=== PATIENT | male | born 1945 | race Caucasian/White ===

== ENCOUNTER → 2018-08-02 07:44 | Outpatient (CLI) | payer MEDICARE, OTHER, SELFPAY ==
[2018-08-02 08:17] LABS: Alanine Aminotransferase 47 IU/L (21-72); Albumin 4.3 g/dL (3.5-5.0); Albumin Globulin Ratio 1.5 (1.0-2.8); Alkaline Phosphatase 98 U/L (38-126); Aspartate Aminotransferase 92 IU/L (17-59); BUN Creatinine Ratio 11.4 (6-22); Bilirubin Total 0.4 mg/dL (0.2-1.3); Blood Urea Nitrogen 8 mg/dL (9-20); Calcium 9.2 mg/dL (8.4-10.2); Carbon Dioxide 31 mmol/L (22-32); Chloride 101 mmol/L (98-107); Cholesterol 130 mg/dL (140-199); Estimated Glomerular Filt Rate > 60.0 mL/min (>60); Globulin 2.8 g/dL (1.7-4.1); Glucose 109 mg/dL (80-110); HDL Cholesterol 89 mg/dL (40-60); HEMOLYSIS < 15 (0-50); LDL Cholesterol Calculated 31 mg/dL (<100); Potassium 4.4 mmol/L (3.4-5.1); Sodium 140 mmol/L (137-145); Total Protein 7.1 g/dL (6.3-8.2); Triglycerides 48 mg/dL (35-150)
== END ==
PROVIDERS: Family Provider Internal Medicine; PCP Family Medicine; Visit Provider Family Medicine
DX: E78.5 Hyperlipidemia, unspecified (principal); I10 Essential (primary) hypertension
CPT/HCPCS: 36415; 80053; 80061

== ENCOUNTER → 2018-08-26 12:53 | Outpatient (CLI) | payer MEDICARE, OTHER, SELFPAY | PROVIDERS: Family Provider Internal Medicine; PCP Family Medicine; Visit Provider Family Medicine | DX: M81.0 Age-related osteoporosis without current pathological fracture (principal); Z82.62 Family history of osteoporosis | CPT/HCPCS: 77080 ==

== ENCOUNTER 2019-03-01 07:00 | Emergency (ER) | payer MEDICARE, OTHER, SELFPAY ==
--- NOTE | 2019-03-01 07:09 | DI.RAD.S_ITS ---
PROCEDURE: XR CHEST 1V INDICATIONS: pleuritic chest pain TECHNIQUE: One view of the chest was acquired. COMPARISON: None. FINDINGS: Surgical changes and devices: None. Lungs and pleura: Low lung volumes with scattered subsegmental atelectasis/scarring. No pleural effusions or pneumothorax. Mediastinum: Mediastinal contours appear normal. Heart size is normal. Bones and chest wall: No suspicious bony lesions. Overlying soft tissues appear unremarkable. IMPRESSION: Low lung volumes and scattered atelectasis. No acute disease. Dictated by: Daniel Champagne M.D. on 03/01/2019 at 7:39 Approved by: Daniel Champagne M.D. on 03/01/2019 at 7:40
[2019-03-01 07:13] VITALS: BP 136/86; PULSE 88; RESP 19; O2SAT 96
[2019-03-01 07:21] LABS: Add Manual Diff / Slide Review NO; Basophils Absolute Auto 100 /uL (0-100); Basophils Percent Auto 0.6 % (0-2); Eosinophils Absolute Auto 0 /uL (0-450); Eosinophils Percent Auto 0.2 % (2-4); Hematocrit 43.6 % (41-53); Hemoglobin 15.3 g/dL (13.5-17.5); Lymphocytes Absolute Auto 1200 /uL (1100-4500); Lymphocytes Percent Auto 11.5 % (25-40); Mean Corpuscular HGB Conc 35.2 % (30-36); Mean Corpuscular Hemoglobin 32.8 PG (26-34); Mean Corpuscular Volume 93.2 fL (80-100); Monocytes Absolute Auto 900 /uL (0-900); Monocytes Percent Auto 8.7 % (3-14); Neutrophils Absolute Auto 8600 /uL (1500-7000); Platelet Count 210 X10^3/uL (150-400); Red Blood Cell Count 4.68 X10^6/uL (4.5-5.9); Red Cell Distribution Width 13.2 % (11.6-14.8); White Blood Cell Count 10.8 X10^3/uL (4.5-11.0)
[2019-03-01 07:31] LABS: Alanine Aminotransferase 41 IU/L (21-72); Albumin 4.6 g/dL (3.5-5.0); Albumin Globulin Ratio 1.6 (1.0-2.8); Alkaline Phosphatase 84 U/L (38-126); Aspartate Aminotransferase 93 IU/L (17-59); Bilirubin Total 0.9 mg/dL (0.2-1.3); Blood Urea Nitrogen 9 mg/dL (9-20); Calcium 9.5 mg/dL (8.4-10.2); Carbon Dioxide 28 mmol/L (22-32); Chloride 101 mmol/L (98-107); Creatine Kinase 100 U/L (55-170); Estimated Glomerular Filt Rate > 60.0 mL/min (>60); Globulin 2.9 g/dL (1.7-4.1); Glucose 146 mg/dL (80-110); HEMOLYSIS 17 (0-50); Lipase 135 U/L (23-300); Potassium 3.7 mmol/L (3.4-5.1); Sodium 141 mmol/L (137-145); Total Protein 7.5 g/dL (6.3-8.2)
[2019-03-01] MEDS: SODIUM CHLORIDE 0.9% 1,000 ML 150 ML IV (07:32)
--- NOTE | 2019-03-01 07:39 | ED.CHESTPAIN ---
HPI - Chest Pain General Chief Complaint: Chest Pain Stated Complaint: chest difficulty breathing Time Seen by Provider: 03/01/19 07:02 Source: patient and family Mode of arrival: ambulatory Limitations: no limitations History of Present Illness HPI narrative: 74-year-old male nonsmoker with history of hypertension and hyperlipidemia presents with his significant other at the bedside with sharp and stabbing anterior chest pain since 12/19 this morning. He states it is worse with motion and with a deep breath. He denies any cough but has had some sinus congestion and was exposed to significant allergens [facility]. He denies any cardiac history. He denies any associated symptoms such as dizziness, weakness, lightheadedness, radiation of pain, provocation with exertion, nausea or vomiting. He denies recent travel, history of cancer Related Data Home Medications Medication Instructions Recorded Confirmed ASPIRIN (Aspir-Low) 81 mg PO QDAY #0 03/01/11 [VITAMIN D] QDAY #0 03/01/11 Previous Rx's Medication Instructions Recorded amlodipine 2.5 mg tablet 2.5 mg PO DAILY #90 tab 09/30/18 atorvastatin 40 mg tablet 40 mg PO DAILY #90 tab 09/30/18 Allergies Allergy/AdvReac Type Severity Reaction Status Date / Time Penicillins [PENICILLINS] Allergy Unknown A CHILD Verified 03/01/19 07:24 Review of Systems Constitutional Denies chills, Denies fever(s), Denies lethargy and Denies weakness Eyes Denies change in vision, Denies eye discharge, Denies irritation and Denies loss of vision ENT Ears, Nose, Mouth, and Throat: Denies change in voice, Denies neck pain and Denies sore throat Cardiovascular Reports chest pain, Denies irregular heart rhythm, Denies lightheadedness, Denies palpitations, Denies dyspnea, Denies dyspnea on exertion and Denies orthopnea Respiratory Denies cough, Reports pain on inspiration, Reports pain with cough, Denies dyspnea, Denies dyspnea on exertion and Denies wheezing Gastrointestinal Gastrointestinal: Denies abdominal pain, Denies change in bowel habits, Denies diarrhea, Denies nausea and Denies vomiting Genitourinary Denies hematuria, Denies flank pain, Denies urinary incontinence and Denies urinary urgency Musculoskeletal Denies neck pain Integumentary/Breasts Denies pruritus, Denies erythema, Denies rash and Denies wounds Neurologic Denies confusion, Denies loss of vision and Denies weakness Psychiatric Denies anxiety, Denies confusion, Denies depression, Denies homicidal ideation and Denies suicidal ideation Endocrine Denies palpitations Hematologic/Lymphatic Denies easy bruising Allergic/Immunologic Denies wheezing [facility] Medical History Actinic keratosis (Chronic ~1998) H pylori ulcer (Chronic ~2013) Osteopenia (Chronic ~2013) Cataracts, bilateral (Resolved ~2015) Chicken pox (Resolved) Measles (Resolved) Retinal detachment (Resolved ~2015) Surgical History Anesthesia (Resolved) Detached retina, right (Resolved ~2015) Detached retina, right (Resolved ~2015) History of bilateral knee replacement (Resolved ~2016) History of eye surgery (Resolved ~2014) Skin cancer (Resolved ~1998) Family History Father No problems noted. Mother Heart disease Brother Parkinson's disease Grandmother No problems noted. Grandfather No problems noted. Grandmother No problems noted. Social History marital status: household members: spouse lives independently: Yes education level: master's degree occupational status: other (retired) leisure activities: exercise and other (sailing) other: hiking Smoking Status: Never smoker alcohol intake: current (1-2 drinks daily) substance use type: does not use Family History Father No problems noted. Mother Heart disease Brother Parkinson's disease Grandmother No problems noted. Grandfather No problems noted. Grandmother No problems noted. Social History marital status: household members: spouse lives independently: Yes education level: master's degree occupational status: other (retired) leisure activities: exercise and other (sailing) other: hiking Smoking Status: Never smoker alcohol intake: current (1-2 drinks daily) substance use type: does not use Exam Narrative Exam Narrative: GENERAL: 74-year-old male, well-appearing, appears stated age and in mild distress, perhaps a bit anxious HEAD: Atraumatic. Normocephalic. No temporal or scalp tenderness. EYES: Pupils equal round and reactive. Extraocular motions intact. No scleral icterus. No injection or drainage. ENT: Nose without bleeding, purulent drainage or septal hematoma. Throat without erythema, tonsillar hypertrophy or exudate. Uvula midline. Airway patent. NECK: Trachea midline. No JVD or lymphadenopathy. Supple, nontender, no meningeal signs. CARDIOVASCULAR: Regular rate and rhythm without murmurs, gallops, or rubs. RESPIRATORY: Clear to auscultation. Breath sounds equal bilaterally. No wheezes, rales, or rhonchi. GASTROINTESTINAL: Abdomen soft, non-tender, nondistended. No hepato-splenomegaly, or palpable masses. No guarding. EXTREMITIES: No clubbing, cyanosis, or edema. No joint tenderness, effusion, or edema noted. BACK: Nontender without deformity or crepitance. No flank tenderness. NEURO: AOx3. SKIN: No rash or erythema. Initial Vital Signs Initial Vital Signs: Vital Signs Pulse Rate 88 03/01/19 07:13 Respiratory Rate 19 03/01/19 07:13 Blood Pressure 136/86 03/01/19 07:13 Pulse Oximetry 96 03/01/19 07:13 Course Orders Ordered: Discontinued Medications Aspirin (Aspirin Chew) 324 mg PO NOW ONE Stop: 03/01/19 07:10 Last Admin: 03/01/19 07:32 Dose: Not Given Sodium Chloride (Normal Saline 0.9%) 1,000 mls @ 150 mls/hr IV CONT LORETTA Last Infusion: 03/01/19 11:38 Dose: 0 mls/hr Admin: 03/01/19 07:32 Dose: 150 mls/hr Ketorolac Tromethamine (Toradol) 15 mg IV NOW ONE Stop: 03/01/19 07:48 Last Admin: 03/01/19 08:17 Dose: 15 mg Vital Signs - 8 hr 03/01/19 07:13 03/01/19 08:30 Pulse Rate 88 82 Respiratory Rate 17 Blood Pressure 136/86 Blood Pressure [Right Arm] 183/73 H Pulse Oximetry 96 94 MDM - Chest Pain Lab Data Result diagrams: 03/01/19 07:12 03/01/19 07:12 Lab Results 03/01/19 03/01/19 03/01/19 Range/Units 07:12 07:12 07:12 WBC 10.8 (4.5-11.0) X10^3/uL RBC 4.68 (4.5-5.9) X10^6/uL Hgb 15.3 (13.5-17.5) g/dL Hct 43.6 (41-53) % MCV 93.2 (80-100) fL MCH 32.8 (26-34) PG MCHC 35.2 (30-36) % RDW 13.2 (11.6-14.8) % Plt Count 210 (150-400) X10^3/uL Neut % (Auto) 79.0 H (50-75) % Lymph % (Auto) 11.5 L (25-40) % [place] % (Auto) 8.7 (3-14) % Eos % (Auto) 0.2 L (2-4) % Baso % (Auto) 0.6 (0-2) % Neut # (Auto) 8600 H (9907-1102) /uL Lymph # (Auto) 1200 (1375-9458) /uL [place] # (Auto) 900 (0-900) /uL Eos # (Auto) 0 (0-450) /uL Baso # (Auto) 100 (0-100) /uL D-Dimer < 200 (<230) ng/mL Sodium 141 (137-145) mmol/L Potassium 3.7 (3.4-5.1) mmol/L Chloride 101 (98-107) mmol/L Carbon Dioxide 28 (22-32) mmol/L BUN 9 (9-20) mg/dL Creatinine 0.50 L (0.66-1.25) mg/dL Estimated GFR > 60.0 (>60) mL/min BUN/Creatinine Ratio 18.0 (6-22) Glucose 146 H (80-110) mg/dL Calcium 9.5 (8.4-10.2) mg/dL Total Bilirubin 0.9 (0.2-1.3) mg/dL AST 93 H (17-59) IU/L ALT 41 (21-72) IU/L Alkaline Phosphatase 84 (38-126) U/L Total Creatine Kinase 100 (55-170) U/L CK-MB (CK-2) TNP CK-MB (CK-2) Rel Index TNP Troponin I < 0.012 (0.01-0.034) ng/mL B-Natriuretic Peptide < 100 (<100) Total Protein 7.5 (6.3-8.2) g/dL Albumin 4.6 (3.5-5.0) g/dL Globulin 2.9 (1.7-4.1) g/dL Albumin/Globulin Ratio 1.6 (1.0-2.8) Lipase 135 (23-300) U/L 03/01/19 Range/Units 09:30 WBC (4.5-11.0) X10^3/uL RBC (4.5-5.9) X10^6/uL Hgb (13.5-17.5) g/dL Hct (41-53) % MCV (80-100) fL MCH (26-34) PG MCHC (30-36) % RDW (11.6-14.8) % Plt Count (150-400) X10^3/uL Neut % (Auto) (50-75) % Lymph % (Auto) (25-40) % [place] % (Auto) (3-14) % Eos % (Auto) (2-4) % Baso % (Auto) (0-2) % Neut # (Auto) (8619-0150) /uL Lymph # (Auto) (6591-7907) /uL [place] # (Auto) (0-900) /uL Eos # (Auto) (0-450) /uL Baso # (Auto) (0-100) /uL D-Dimer (<230) ng/mL Sodium (137-145) mmol/L Potassium (3.4-5.1) mmol/L Chloride (98-107) mmol/L Carbon Dioxide (22-32) mmol/L BUN (9-20) mg/dL Creatinine (0.66-1.25) mg/dL Estimated GFR (>60) mL/min BUN/Creatinine Ratio (6-22) Glucose (80-110) mg/dL Calcium (8.4-10.2) mg/dL Total Bilirubin (0.2-1.3) mg/dL AST (17-59) IU/L ALT (21-72) IU/L Alkaline Phosphatase (38-126) U/L Total Creatine Kinase (55-170) U/L CK-MB (CK-2) CK-MB (CK-2) Rel Index Troponin I < 0.012 (0.01-0.034) ng/mL B-Natriuretic Peptide (<100) Total Protein (6.3-8.2) g/dL Albumin (3.5-5.0) g/dL Globulin (1.7-4.1) g/dL Albumin/Globulin Ratio (1.0-2.8) Lipase (23-300) U/L Imaging Data Chest x-ray: Radiologist's impression: Mark Flores T 74 M [address] [address] XRay Report Signed Patient: Mark Flores TMR#: [id number] : 5Acct:[id number] Age/Sex: 74 / MDate of Service: 03/01/19 Loc: ED Accession Number: [id number] Procedure: XR chest 1V Ordering Provider: Mane Del Rio D.O. PROCEDURE: XR CHEST 1V INDICATIONS: pleuritic chest pain TECHNIQUE: One view of the chest was acquired. COMPARISON: None. FINDINGS: Surgical changes and devices: None. Lungs and pleura: Low lung volumes with scattered subsegmental atelectasis/scarring. No pleural effusions or pneumothorax. Mediastinum: Mediastinal contours appear normal. Heart size is normal. Bones and chest wall: No suspicious bony lesions. Overlying soft tissues appear unremarkable. IMPRESSION: Low lung volumes and scattered atelectasis. No acute disease. Dictated by: Daniel Champagne M.D. on 03/01/2019 at 7:39 Approved by: Daniel Champagne M.D. on 03/01/2019 at 7:40 US - abdomen: Radiologist's impression: [address] [address] Ultrasound Report Signed Patient: Mark Flores TMR#: [id number] : 5Acct:[id number] Age/Sex: 74 / MDate of Service: 03/01/19 Loc: ED Accession Number: [id number] Procedure: US abdomen complete Ordering Provider: Mane Del Rio D.O. PROCEDURE: US ABDOMEN COMPLETE INDICATIONS: EPIGASTRIC PAIN TECHNIQUE: Real-time scanning was performed of the abdominal and retroperitoneal organs, with image documentation. COMPARISON: None. FINDINGS: Liver: The liver is mildly enlarged and measures up to 18.6 cm in craniocaudal dimension. There is a small simple appearing cyst identified within the medial aspect of the left hepatic lobe measuring up to 1.2 cm in diameter. The background echogenicity of the liver is diffusely increased which does result in difficulty evaluating for subtle liver lesions. No large solid liver lesions are evident. Gallbladder: The gallbladder is normal in size. Areas of mild gallbladder wall thickening are present with a small echogenic foci identified within the region of the gallbladder wall, which may demonstrate mild reverberation artifact. No pericholecystic fluid is evident. Biliary ducts: Intrahepatic bile ducts are non-dilated. Extrahepatic bile duct caliber measures 5 mm. Normal is 6-7 mm or less in diameter, or 10 mm or less post-cholecystectomy. Pancreas: Visualized portions of the pancreas are sonographically normal. Spleen: Spleen is normal in size and homogeneous in echotexture. Kidneys: Kidneys are normal in size and echotexture. Right kidney measures 11.5 cm long; left kidney measures 13.0 cm long. No hydronephrosis or shadowing nephrolithiasis. No solid masses. Bilateral renal cysts are present with the cyst on the left measuring up to 4.9 cm in diameter. Aorta: Visualized aorta is normal in caliber at less than 3 cm. Iliacs: Proximal common iliac arteries are normal in caliber at less than 2.5 cm. IVC: Intrahepatic inferior vena cava is patent. Miscellaneous: No free abdominal fluid. IMPRESSION: 1. Adenomyomatosis versus small adherent stones to the wall of the gallbladder. No acute cholecystitis is suspected. 2. Mild hepatomegaly with corresponding hepatic steatosis. Clinical correlation to exclude other chronic liver disease is is recommended. 3. Bilateral renal cysts. Dictated by: aJy Stephens M.D. on 03/01/2019 at 10:01 Approved by: Jay Stephens M.D. on 03/01/2019 at 10:04 CT scan - chest: Radiologist's impression: [address] [address] [address] Scan Report Signed Patient: Mark Flores TMR#: [id number] : 5Acct:[id number] Age/Sex: 74 / MDate of Service: 03/01/19 Loc: ED Accession Number: [id number] Procedure: CT angio chest PE protocol Ordering Provider: Mane Del Rio D.O. PROCEDURE: CT ANGIO CHEST PE PROTOCOL INDICATIONS: chest pain, radiation, SOB< pleuritic TECHNIQUE: After the administration of intravenous contrast, 2 mm thick sections acquired from the pulmonary apices to the posterior costophrenic angles. 3-dimensional maximum intensity projection (MIP) coronal and sagittal reformats were then acquired through the thorax. For radiation dose reduction, the following was used: automated exposure control, adjustment of mA and/or kV according to patient size. COMPARISON: None. FINDINGS: Image quality: Excellent. Pulmonary arteries: No evidence of pulmonary embolism. Enlarged appearance of the central pulmonary arteries suggestive of pulmonary arterial hypertension.. Lungs and pleura: Bilateral lower lobe scarring/atelectasis. No pleural effusions or pneumothorax. Central and peripheral airways are patent. Mediastinum: Heart size is enlarged, without pericardial effusion. No mediastinal or hilar adenopathy. Thoracic aorta is normal in caliber and enhancement. Esophagus is normal in caliber, without hiatal hernia. Incidentally noted shotty periesophageal lymph nodes at the GE junction. Bones and chest wall: A presumed left rib bone island on image 80 series 5. Ribs and thoracic spine appear intact throughout. Thyroid gland negative. No axillary or supraclavicular adenopathy. Abdomen: Visualized upper abdominal solid organs appear normal in the early arterial phase of enhancement. Colonic diverticulosis. Sub-5 mm gallstones without other evidence of acute cholecystitis. Nonspecific subcentimeter hepatic hypodensity in the left lobe of liver IMPRESSION: No evidence of pulmonary embolism. No aortic dissection. Bilateral lower lobe scarring/atelectasis. Incidental cholelithiasis. Enlarged central pulmonary arteries suggestive of pulmonary arterial hypertension. Dictated by: Daniel Champagne M.D. on 03/01/2019 at 9:00 ECG Data Interpretation: Normal sinus rhythm, rate 88, no ST segmental elevations or depressions. No T-wave inversions. PE are 203, QRS 92, QTC 366 Discharge Plan Departure Patient Disposition: Home Clinical Impression: Atypical chest pain Discharge Date/Time: 03/01/19 11:42 Interventions: ED Discharge Assessment Last Done: 03/01/19 11:39 Activity Restrictions/Additional Instructions: *You have been diagnosed with [atypical chest pain, incidental finding of gallstones ] *What to do: *Continue to take medications as directed *Follow up with your primary care provider in 2-3 days, call for an appointment. Let them know you were seen in the Emergency Department and that we ask that you be seen in follow up *Return to ER if you should have any new, worsening or concerning symptoms *You have gallstones and some atypical appearance of the gallbladder, and you will need to see Dr. Au (general surgery) for follow up. I've called him Prescriptions: No Action [VITAMIN D] QDAY Qty: 0 RF: 0 ASPIRIN (Aspir-Low) 81 mg PO QDAY Qty: 0 RF: 0 amlodipine 2.5 mg tablet 2.5 mg PO DAILY Qty: 90 RF: 1 atorvastatin 40 mg tablet 40 mg PO DAILY Qty: 90 RF: 1 Referrals: Nirmal Au MD [Physician] - Cynthia Jaramillo DO [Primary Care Provider] -
[2019-03-01 07:42] LABS: Troponin I < 0.012 ng/mL (0.01-0.034)
[2019-03-01 07:47] LABS: B Type Natriuretic Peptide < 100 (<100)
[2019-03-01 08:06] LABS: D Dimer < 200 ng/mL (<230)
--- NOTE | 2019-03-01 08:07 | DI.CT.S_ITS ---
PROCEDURE: CT ANGIO CHEST PE PROTOCOL INDICATIONS: chest pain, radiation, SOB< pleuritic TECHNIQUE: After the administration of intravenous contrast, 2 mm thick sections acquired from the pulmonary apices to the posterior costophrenic angles. 3-dimensional maximum intensity projection (MIP) coronal and sagittal reformats were then acquired through the thorax. For radiation dose reduction, the following was used: automated exposure control, adjustment of mA and/or kV according to patient size. COMPARISON: None. FINDINGS: Image quality: Excellent. Pulmonary arteries: No evidence of pulmonary embolism. Enlarged appearance of the central pulmonary arteries suggestive of pulmonary arterial hypertension.. Lungs and pleura: Bilateral lower lobe scarring/atelectasis. No pleural effusions or pneumothorax. Central and peripheral airways are patent. Mediastinum: Heart size is enlarged, without pericardial effusion. No mediastinal or hilar adenopathy. Thoracic aorta is normal in caliber and enhancement. Esophagus is normal in caliber, without hiatal hernia. Incidentally noted shotty periesophageal lymph nodes at the GE junction. Bones and chest wall: A presumed left rib bone island on image 80 series 5. Ribs and thoracic spine appear intact throughout. Thyroid gland negative. No axillary or supraclavicular adenopathy. Abdomen: Visualized upper abdominal solid organs appear normal in the early arterial phase of enhancement. Colonic diverticulosis. Sub-5 mm gallstones without other evidence of acute cholecystitis. Nonspecific subcentimeter hepatic hypodensity in the left lobe of liver IMPRESSION: No evidence of pulmonary embolism. No aortic dissection. Bilateral lower lobe scarring/atelectasis. Incidental cholelithiasis. Enlarged central pulmonary arteries suggestive of pulmonary arterial hypertension. Dictated by: Daniel Champagne M.D. on 03/01/2019 at 9:00 Approved by: Daniel Champagne M.D. on 03/01/2019 at 9:05
[2019-03-01] MEDS: KETOROLAC 60 MG/2 ML VIAL 15 MG IV (08:17)
[2019-03-01 08:30] VITALS: BP 183/73; PULSE 82; RESP 17; O2SAT 94
--- NOTE | 2019-03-01 09:17 | DI.US.S_ITS ---
PROCEDURE: US ABDOMEN COMPLETE INDICATIONS: EPIGASTRIC PAIN TECHNIQUE: Real-time scanning was performed of the abdominal and retroperitoneal organs, with image documentation. COMPARISON: None. FINDINGS: Liver: The liver is mildly enlarged and measures up to 18.6 cm in craniocaudal dimension. There is a small simple appearing cyst identified within the medial aspect of the left hepatic lobe measuring up to 1.2 cm in diameter. The background echogenicity of the liver is diffusely increased which does result in difficulty evaluating for subtle liver lesions. No large solid liver lesions are evident. Gallbladder: The gallbladder is normal in size. Areas of mild gallbladder wall thickening are present with a small echogenic foci identified within the region of the gallbladder wall, which may demonstrate mild reverberation artifact. No pericholecystic fluid is evident. Biliary ducts: Intrahepatic bile ducts are non-dilated. Extrahepatic bile duct caliber measures 5 mm. Normal is 6-7 mm or less in diameter, or 10 mm or less post-cholecystectomy. Pancreas: Visualized portions of the pancreas are sonographically normal. Spleen: Spleen is normal in size and homogeneous in echotexture. Kidneys: Kidneys are normal in size and echotexture. Right kidney measures 11.5 cm long; left kidney measures 13.0 cm long. No hydronephrosis or shadowing nephrolithiasis. No solid masses. Bilateral renal cysts are present with the cyst on the left measuring up to 4.9 cm in diameter. Aorta: Visualized aorta is normal in caliber at less than 3 cm. Iliacs: Proximal common iliac arteries are normal in caliber at less than 2.5 cm. IVC: Intrahepatic inferior vena cava is patent. Miscellaneous: No free abdominal fluid. IMPRESSION: 1. Adenomyomatosis versus small adherent stones to the wall of the gallbladder. No acute cholecystitis is suspected. 2. Mild hepatomegaly with corresponding hepatic steatosis. Clinical correlation to exclude other chronic liver disease is is recommended. 3. Bilateral renal cysts. Dictated by: Jay Stephens M.D. on 03/01/2019 at 10:01 Approved by: Jay Stephens M.D. on 03/01/2019 at 10:04
[2019-03-01 10:07] LABS: Troponin I < 0.012 ng/mL (0.01-0.034)
[2019-03-01 11:00] VITALS: BP 119/75; PULSE 77; RESP 17; O2SAT 93
[2019-03-01 11:39] VITALS: BP 140/90; PULSE 78; RESP 13; O2SAT 98
== END 2019-03-01 11:42 | disposition home or self-care (01) ==
PROVIDERS: Emergency Provider Emergency Medicine; Family Provider Internal Medicine; PCP Family Medicine
DX: R07.89 Other chest pain (principal)
CPT/HCPCS: 36415; 36591; 71045; 71275; 76700; 80053; 82550; 83690; 83880; 84484; 85025; 85379; 93005; 93010; 96361; 96374; 99283; 99285; J1885; Q9967

== ENCOUNTER → 2019-04-03 09:17 | Outpatient (CLI) | payer MEDICARE, OTHER, SELFPAY ==
--- NOTE | 2019-04-03 09:20 | DI.NM.S_ITS ---
PROCEDURE: NM MARI PERF SPECT REST & STR Rest and exercise myocardial perfusion SPECT with gated imaging and ejection fraction RADIOPHARMACEUTICAL: 20.4 mCi Tc-99m sestamibi IV at rest and 20.2 mCi Tc-99m sestamibi IV at peak exercise. A [id number] was performed. INDICATIONS: atypical chest pain TECHNIQUE: Radiopharmaceutical was injected at peak stress test, and also at rest. SPECT images were obtained. SPECT myocardial perfusion images were displayed in short axis, horizontal long axis, and vertical long axis views. Gated images were reviewed using [employer] software. COMPARISON: None. CARDIAC STRESS: A standard Rich treadmill exercise tolerance test was performed by the patient under the supervision of an attending staff. The patient exercised for 7 minutes and 3 seconds; functional aerobic impairment (MAYNOR) is -10 %. Hemodynamic data: There is normal blood pressure and heart rate response to exercise stress. Patient achieved 145% of maximum predicted heart rate at peak exercise. Symptoms: Patient denied chest pain during exercise. EKG: No diagnostic EKG changes of ischemia; no ectopy. FINDINGS: Raw data: There is good myocardial labeling by radiotracer. No significant motion artifacts. Ajbr-[id number] ratio is 0.27 (normal is less than 0.38 for sestamibi tracer, and less than 0.50 for thallium tracer). Left ventricle function: Gated images demonstrate normal left ventricle wall thickening. No segmental wall motion abnormality. No transient ischemic dilation; TID is 0.85 (normal less than 1.3). The left ventricle resting end-diastolic volume is 141mL. Left ventricle stress ejection fraction is 70% ; normal values are above 45%. Myocardial perfusion: There is normal distribution of activity in the left and right ventricular myocardium. No fixed or reversible perfusion defects. Conclusion: -Normal perfusion study without evidence of ischemia or scar. -Good exercise capacity. -Mild [place] depression is noted. Consider pericarditis. Dictated by: Yaron Rodriguez M.D. on 04/04/2019 at 18:02 Approved by: Yaron Rodriguez M.D. on 04/04/2019 at 18:21
--- NOTE | 2019-04-03 10:20 | PM.TREADMILL ---
Cardiac Stress Test Report Referral & Results Date Patient Seen: 04/03/19 Requesting provider: Cynthia Jaramillo Indication: Chest discomfort Rest ECG: Unremarkable Procedure Note: Today following both written and verbal informed consent the patient was exercised according to a standard Rich protocol patient went for a total of 7 minutes 3 seconds achieving a maximum heart rate of 133 maximum systolic blood pressure of 200. This is approximately 10.1 METS. Exercise was terminated at this point because of targets were met. Patient was also given Cardiolite through a previously started Hep-Lock IV by the diagnostic imaging staff approximately 1 minute prior to the cessation of exercise. There are no ST-T segment changes identified Normal heart rate response to exercise but hypertensive throughout Occasional multifocal PVCs including very brief runs of ventricular bigeminy and trigeminy Rare PACs Function aerobic impairment rates-10% on the active scale, or 10% better than average Impression: No evidence of ischemia based on ECG criteria Excellent exercise capacity Please see perfusion imaging report as well Also patient with ventricular dysrhythmia as above, echocardiography can be helpful in this situation as well Please note: Actual ECG tracings can be found in the PACS system.
== END ==
PROVIDERS: PCP Family Medicine; Visit Provider Family Medicine
DX: R07.89 Other chest pain (principal); I10 Essential (primary) hypertension; E78.5 Hyperlipidemia, unspecified; I20.8 Other forms of angina pectoris
CPT/HCPCS: 78452; 93016; 93017; 93018; A9502

== ENCOUNTER 2019-04-15 08:06 | Day surgery (SDC) | payer MEDICARE, OTHER, SELFPAY ==
[2019-04-09 14:00] VITALS: BMI 29.5
[2019-04-15] VITALS (8 sets, daily range): BP systolic 129–157; BP diastolic 85–96; PULSE 69–89; RESP 13–18; TEMP 36.4–36.8; O2SAT 93–99; BMI 29.5
--- NOTE | 2019-04-15 | PATH_ITS ---
[facility] Accession Number: [id number] . 01 Material submitted: . gallbladder - GALLBLADDER . 02 Diagnosis: Gallbladder, Cholecystectomy: Mild chronic cholecystitis with cholelithiasis. Negative for dysplasia and malignancy. MRV 04/17/2019 1333 Local . 02 Electronically signed: . Caridad Coello MD, Pathologist NPI- [id number] . 01 Gross description: . Received in formalin, labeled gallbladder, is a perforated gallbladder (length-8.8 cm, diameter-2.7 cm) with green smooth shiny serosa and a patent cystic duct. No lymph nodes are identified. The lumen contains dark green viscous bile and multiple dark green gritty friable calculi (4.5 x 4.0 x 0.2 cm in aggregate). The mucosa is green smooth and flat. The wall is up to 0.1 cm thick. No nodules, masses or lesions are identified. Section code: (A1) cystic duct resection margin and two serial sections from the body; (A2) two longitudinal sections from the fundus. ([id number]) /MRV 04/16/2019 1034 Local . 02 Pathologist provided ICD-10: K80.40 . 02 CPT . 317137 Performed at: 01 [facility] [address], [place], [place] [id number] MD Jb Mccabe MD Phone: [phone] Performed at: 02 [facility] [address] [place], [place] [id number] MD Caridad Coello MD Phone: [phone]
--- NOTE | 2019-04-15 08:55 | PM.PREOP ---
Pre-operative Note Interval Note History & Physical reviewed/Exam performed by Physician: Yes Changes to H&P: No
[2019-04-15] MEDS: LACTATED RINGERS 1,000 ML 100 ML IV (08:56)
[2019-04-15] MEDS: CLINDAMYCIN 900 MG/50 ML PIGGYBACK 50 MG IV (09:28)
--- NOTE | 2019-04-15 09:50 | SUR.OPER ---
Supine on padded OR bed, head on pillow, safety belt at thigh, RUY. armS secured on padded arm Board <90 degrees abduction. Legs uncrossed. Padded footboard in place. Tape over blanket to secure lower legs.
[2019-04-15] MEDS: BUPIVACAINE 0.25% (PF) VIAL 30 ML INJ (09:57)
--- NOTE | 2019-04-15 10:52 | SUR.PHASEI ---
Assumed care of pt at this time. Bedside report received from IGNACIO Aguirre. PT in stable condition, vss. Surgical incision sites observed to be c/d/i. Pt denies any nausea.
--- NOTE | 2019-04-15 10:53 | PM.OP.1 ---
Operative Date/Time/Diagnoses Date of procedure: 04/15/19 Time of procedure: 10:54 Pre-op diagnosis: Biliary colic Umbilical hernia Post-op diagnosis: same Procedure & Clinicians Procedure: Laparoscopic cholecystectomy Primary umbilical hernia repair Same procedure as scheduled: Yes Indications: 74-year-old male with biliary colic and a symptomatic umbilical hernia presents for elective laparoscopic cholecystectomy and umbilical hernia repair Surgeon: Scott Gomez Yes if Unassisted: Yes Anesthesia Type: General Operative Notes Findings: Chronic cholecystitis, small umbilical hernia Specimen(s): other (Gallbladder) Estimated Blood Loss (mL): 10 Procedure in detail: The patient was brought to the operating room placed supine on the table. Bilateral lower extremity compression devices were applied. General anesthesia was induced and they were intubated with an endotracheal tube. They received 2g of Ancef prior to skin incision. A time-out was performed to ensure the correct patient procedure necessary equipment within the operating room. They were then prepped and draped in the usual sterile fashion. Infraumbilical incision was made the umbilical stalk was grasped and elevated and the fascia was sharply incised. The abdomen was entered atraumatically. A 10 mm trocar was then placed into the abdomen. Pneumoperitoneum was established. The laparoscopic camera was inserted into the abdomen inspection was made that demonstrated no evidence of injury upon entry. We then placed our working ports the 1st 5 mm port high in the epigastrium and then 2 in the right upper quadrant. The gallbladder was grasped and retracted over the liver and grasped laterally by the fundus. The triangle of Calot was exposed. The triangle of calot was then skeletonized using hook electrocautery and demonstrated the cystic duct clearly entering the gallbladder the cystic artery and the liver and in the background. With the critical view of safety established the cystic duct was clipped twice proximally and once distally and then sharply divided and the cystic artery was taken in the same fashion. Next the gallbladder was removed from the liver bed using electro cautery. The liver bed was then inspected for hemostasis and this was achieved. The abdomen was irrigated with sterile saline and inspection was made that showed the clips in good position. The specimen was removed using Endo-Catch. The abdomen was desufflated. The umbilical hernia sac was freed from the fascial edges circumferentially. The fascial defect was small and closed primarily with Ethibond in interrupted fashion. Skin incisions were irrigated and closed with 4-0 Monocryl. The wounds were sealed with Dermabond. Patient emerged from general anesthesia was extubated and transferred to the postoperative care unit missed stable condition. The sponge and instrument count at the end of the operation was correct. Complications: none Post-operative Condition: stable Disposition: same day surgery
== END 2019-04-15 11:52 | disposition home or self-care (01) ==
PROVIDERS: PCP Family Medicine; Visit Provider Surgery
PROC: 0FT44ZZ Resection of Gallbladder, Percutaneous Endoscopic Approach (ICD-10-PCS; CPT 47562; principal; 2019-04-15 09:15)
PROC: (CPT 47562; 2019-04-15 09:15)
DX: K80.50 Calculus of bile duct without cholangitis or cholecystitis without obstruction (principal); K42.9 Umbilical hernia without obstruction or gangrene
CPT/HCPCS: 47562; 49585; J1100; J2405; J2704; J3010

== ENCOUNTER → 2019-05-07 14:47 | Outpatient (CLI) | payer MEDICARE, OTHER, SELFPAY ==
--- NOTE | 2019-05-07 14:49 | DI.ECHO.S_ITS ---
[facility]---------+ [facility] +---------+ : : [address] : : : : [id number] : : : : Phone: [phone] Echocardiogram Report + + :Name: KRUPA PACHECO Study Date: 05/07/2019 Height: 70 in : :[facility] Weight: 210 lb : : Gender: Male BSA: 2.1 m2 : :: 1945 Age: 74 yrs BP: 142/85 mmHg: :Reason For Study: ARRHYTHMIA : : Performed By: Oskar Sparrow : :Referring: RAFAT HAMPTON : + + Interpretation Summary Patient was in normal sinus rhythm during the exam but had frequent ectopic beats. The left ventricular ejection fraction is normal. There are no focal wall motion abnormalities. Diastolic parameters suggest a relaxation abnormality of the left ventricle, consistent with probable normal filling pressures. The right ventricle is normal size. Right ventricular systolic function is at the lower limits of normal. The right ventricular systolic pressure is estimated to be at least 23 mmHg based on an estimated right atrial pressure of 3 mm Hg. There is mild aortic regurgitation. The ascending aorta is moderately enlarged. There is no prior echocardiogram noted for this patient. Procedure: A two-dimensional transthoracic echocardiogram with color flow and Doppler was performed. The study quality was technically adequate. There is no prior echocardiogram noted for this patient. The suprasternal notch views were difficult to obtain and are suboptimal in quality. The patient was in normal sinus rhythm during the exam. The patient had occasional PVCs during the exam. The patient had occasional PACs during the exam. Left Ventricle: The left ventricle is normal in size. There is normal left ventricular wall thickness. The ejection fraction is estimated to be 55-60%. The left ventricular ejection fraction is normal. There are no focal wall motion abnormalities. Diastolic parameters suggest a relaxation abnormality of the left ventricle, consistent with probable normal filling pressures. Right Ventricle: The right ventricle is normal size. Right ventricular systolic function is at the lower limits of normal. Atria: The left atrium is mildly dilated. Right atrial size is normal. There is no Doppler evidence for an interatrial shunt. Mitral Valve: The mitral valve is normal in structure and function. There is trace mitral regurgitation. Aortic Valve: The aortic valve is trileaflet. The aortic valve opens well. There is no aortic valve stenosis. There is mild aortic regurgitation. Tricuspid Valve: The tricuspid valve is normal in structure and function. There is trace tricuspid regurgitation. The right ventricular systolic pressure is estimated to be at least 23 mmHg based on an estimated right atrial pressure of 3 mm Hg. Pulmonic Valve: The pulmonic valve is not well visualized. There is trace pulmonic regurgitation. Great Vessels: The aortic root is normal size. The ascending aorta is moderately enlarged. The pulmonary artery is normal size. The IVC is of normal diameter and collapses greater than 50% with a sniff. This suggests a low right atrial pressure of 3 mm Hg. Pericardium/ Pleura There is no pericardial effusion. There is no pleural effusion. MMode/2D Measurements & Calculations LVIDd: 5.0 cm LVOT diam: 2.3 cm LVIDs: 3.8 cm Ao root diam: 4.0 cm FS: 23.1 % Aortic Jxn: 3.5 cm EPSS: 1.2 cm asc Aorta Diam: 4.4 cm IVSd: 0.91 cm LVPWd: 0.77 cm LV londono. diameter/BSA (cm/m^2): 2.3 LV sys. diameter/BSA (cm/m^2): 1.8 LA dimension: 4.3 cm RA long axis: 5.4 cm LA A2 area: 29.3 cm2 RA area: 19.3 cm2 LA A4 area: 18.7 cm2 RA vol: 59.0 ml LA length (vol): 5.8 cm RA : 27.7 ml/m2 LA vol: 79.4 ml IVC diam: 0.98 cm LA vol index: 37.2 ml/m2 RVD1 (basal): 3.2 cm RVD2 (mid): 3.7 cm TAPSE: 1.6 cm Doppler Measurements & Calculations Ao V2 max: 139.8 cm/sec LVOT Max Mundo: 103.7 cm/sec Ao V2 mean: 95.5 cm/sec LV V1 max P.3 mmHg Ao max P.8 mmHg LV V1 VTI: 21.5 cm Ao mean P.1 mmHg GLADYS(I,D): 3.5 cm2 Ao V2 VTI: 25.9 cm GLADYS(V,D): 3.1 cm2 sev ratio: 0.83 GLADYS indexed to BSA (cm^2/m^2): 1.7 AI P1/2t: 614.7 msec AI dec slope: 175.0 cm/sec2 Med Peak E' Mundo: 3.0 cm/sec TR max mundo: 221.8 cm/sec Lat Peak E' Mundo: 4.9 cm/sec TR max P.7 mmHg PA V2 max: 83.0 cm/sec PA V2 mean: 55.9 cm/sec PA mean P.4 mmHg PA pr(Accel): 51.6 mmHg PA Accel Time: 0.06 sec SV(LVOT): 91.3 ml Electronically signed by: Yaron Rodriguez M.D. on Reading Physician:05/07/2019 04:19 PM
== END ==
PROVIDERS: PCP Family Medicine; Visit Provider Family Medicine
DX: I35.1 Nonrheumatic aortic (valve) insufficiency (principal); I49.9 Cardiac arrhythmia, unspecified; I77.89 Other specified disorders of arteries and arterioles
CPT/HCPCS: C8929

== ENCOUNTER → 2020-12-22 08:24 | Outpatient (CLI) | payer MEDICARE, OTHER, SELFPAY ==
[2020-12-22 08:44] LABS: Add Manual Diff / Slide Review NO; Basophils Absolute Auto 100 /uL (0-100); Eosinophils Absolute Auto 500 /uL (0-450); Eosinophils Percent Auto 8.2 % (2-4); Hematocrit 41.9 % (41-53); Lymphocytes Absolute Auto 1700 /uL (1100-4500); Mean Corpuscular HGB Conc 33.3 % (30-36); Mean Corpuscular Hemoglobin 31.6 PG (26-34); Mean Corpuscular Volume 94.8 fL (80-100); Monocytes Absolute Auto 600 /uL (0-900); Monocytes Percent Auto 10.3 % (3-14); Neutrophils Absolute Auto 2900 /uL (1500-7000); Neutrophils Percent Auto 50.5 % (50-75); Platelet Count 174 X10^3/uL (150-400); Red Blood Cell Count 4.42 X10^6/uL (4.5-5.9); White Blood Cell Count 5.7 X10^3/uL (4.5-11.0)
[2020-12-22 09:26] LABS: Alanine Aminotransferase 29 IU/L (<50); Albumin 3.9 g/dL (3.5-5.0); Albumin Globulin Ratio 1.7 (1.0-2.8); Alkaline Phosphatase 93 U/L (38-126); Aspartate Aminotransferase 72 IU/L (17-59); BUN Creatinine Ratio 19.3 (6-22); Bilirubin Total 0.4 mg/dL (0.2-1.3); Blood Urea Nitrogen 11 mg/dL (9-20); Calcium 9.3 mg/dL (8.4-10.2); Carbon Dioxide 27 mmol/L (22-32); Chloride 99 mmol/L (98-107); Cholesterol 92 mg/dL (140-199); Estimated Glomerular Filt Rate > 60.0 mL/min (>60); Globulin 2.3 g/dL (1.7-4.1); Glucose 101 mg/dL (80-110); HDL Cholesterol 57 mg/dL (40-60); HEMOLYSIS < 15 (0-50); LDL Cholesterol Calculated 25 mg/dL (<100); Potassium 4.2 mmol/L (3.4-5.1); Sodium 133 mmol/L (137-145); Total Protein 6.2 g/dL (6.3-8.2); Triglycerides 50 mg/dL (35-150)
== END ==
PROVIDERS: PCP Family Medicine; Referring Provider Family Medicine; Visit Provider Family Medicine
DX: I10 Essential (primary) hypertension (principal); E78.5 Hyperlipidemia, unspecified
CPT/HCPCS: 36415; 80053; 80061; 85025

== ENCOUNTER → 2021-07-04 14:25 | Outpatient (CLI) | payer MEDICARE, OTHER, SELFPAY ==
[2021-07-04 16:30] LABS: COVID19 -Nasal RAPID Negative (Negative)
== END ==
PROVIDERS: PCP Family Medicine; Visit Provider Nurse Practitioner Family
DX: Z20.822 Contact with and (suspected) exposure to COVID-19 (principal); R05.9 Cough, unspecified; R09.89 Other specified symptoms and signs involving the circulatory and respiratory systems
CPT/HCPCS: 87635

== ENCOUNTER → 2022-03-14 08:04 | Outpatient (CLI) | payer MEDICARE, OTHER, SELFPAY ==
[2022-03-14 08:46] LABS: Add Manual Diff / Slide Review NO; Basophils Absolute Auto 100 /uL (0-100); Basophils Percent Auto 1.3 % (0-2); Eosinophils Absolute Auto 500 /uL (0-450); Eosinophils Percent Auto 9.2 % (2-4); Hematocrit 42.3 % (41-53); Hemoglobin 14.5 g/dL (13.5-17.5); Lymphocytes Absolute Auto 1700 /uL (1100-4500); Lymphocytes Percent Auto 34.6 % (25-40); Mean Corpuscular HGB Conc 34.2 % (30-36); Mean Corpuscular Hemoglobin 32.2 PG (26-34); Mean Corpuscular Volume 94.3 fL (80-100); Monocytes Absolute Auto 500 /uL (0-900); Monocytes Percent Auto 10.8 % (3-14); Neutrophils Absolute Auto 2200 /uL (1500-7000); Neutrophils Percent Auto 44.1 % (50-75); Platelet Count 171 X10^3/uL (150-400); Red Blood Cell Count 4.48 X10^6/uL (4.5-5.9); Red Cell Distribution Width 13.1 % (11.6-14.8); White Blood Cell Count 4.9 X10^3/uL (4.5-11.0)
[2022-03-14 09:20] LABS: Alanine Aminotransferase 31 IU/L (<50); Albumin 4.2 g/dL (3.5-5.0); Albumin Globulin Ratio 1.8 (1.0-2.8); Alkaline Phosphatase 92 U/L (38-126); Aspartate Aminotransferase 80 IU/L (17-59); BUN Creatinine Ratio 15.8 (6-22); Bilirubin Total 0.3 mg/dL (0.2-1.3); Blood Urea Nitrogen 9 mg/dL (9-20); Calcium 8.9 mg/dL (8.4-10.2); Carbon Dioxide 27 mmol/L (22-32); Chloride 103 mmol/L (98-107); Cholesterol 124 mg/dL (140-199); Estimated Glomerular Filt Rate > 60 mL/min (>60); Globulin 2.3 g/dL (1.7-4.1); Glucose 102 mg/dL (80-110); HDL Cholesterol 87 mg/dL (40-60); HEMOLYSIS < 15 (0-50); LDL Cholesterol Calculated 23 mg/dL (<100); Potassium 4.3 mmol/L (3.4-5.1); Sodium 136 mmol/L (137-145); Total Protein 6.5 g/dL (6.3-8.2); Triglycerides 72 mg/dL (35-150)
[2022-03-14 09:44] LABS: TSH w/ Reflex to FT4 1.21 uIU/mL (0.47-4.68)
== END ==
PROVIDERS: PCP Family Medicine; Referring Provider Family Medicine; Visit Provider Family Medicine
DX: E78.49 Other hyperlipidemia (principal); I10 Essential (primary) hypertension
CPT/HCPCS: 36415; 80053; 80061; 84443; 85025

== ENCOUNTER → 2022-09-26 11:19 | Outpatient (CLI) | payer MEDICARE, OTHER, SELFPAY ==
[2022-09-26 13:17] LABS: Hemoglobin A1C% w Est Avg Glu 5.5 % (4.0-6.0)
[2022-09-26 13:34] LABS: Prostate Specific Antigen Scrn 0.747 ng/mL (0.1-4.0)
== END ==
PROVIDERS: PCP Family Medicine; Referring Provider Family Medicine; Visit Provider Family Medicine
DX: R73.9 Hyperglycemia, unspecified (principal); Z12.5 Encounter for screening for malignant neoplasm of prostate
CPT/HCPCS: 36415; 83036; G0103

== ENCOUNTER → 2023-06-13 08:10 | Outpatient (CLI) | payer MEDICARE, OTHER, SELFPAY ==
[2023-06-13 09:53] LABS: Alanine Aminotransferase 46 IU/L (<50); Albumin 3.9 g/dL (3.5-5.0); Albumin Globulin Ratio 1.6 (1.0-2.8); Alkaline Phosphatase 88 U/L (38-126); Aspartate Aminotransferase 106 IU/L (17-59); BUN Creatinine Ratio 18.6 (6-22); Bilirubin Total 0.8 mg/dL (0.2-1.3); Blood Urea Nitrogen 11 mg/dL (9-20); Calcium 9.4 mg/dL (8.4-10.2); Carbon Dioxide 28 mmol/L (22-32); Chloride 102 mmol/L (98-107); Cholesterol 126 mg/dL (140-199); Estimated Glomerular Filt Rate > 60 mL/min (>60); Globulin 2.4 g/dL (1.7-4.1); Glucose 108 mg/dL (80-110); HDL Cholesterol 90 mg/dL (40-60); HEMOLYSIS < 15 (0-50); LDL Cholesterol Calculated 27 mg/dL (<100); Potassium 4.3 mmol/L (3.4-5.1); Sodium 136 mmol/L (137-145); Total Protein 6.3 g/dL (6.3-8.2); Triglycerides 46 mg/dL (35-150)
== END ==
PROVIDERS: PCP Family Medicine; Referring Provider Family Medicine; Visit Provider Family Medicine
DX: I10 Essential (primary) hypertension (principal)
CPT/HCPCS: 36415; 80053; 80061

== ENCOUNTER → 2023-11-28 13:18 | Outpatient (CLI) | payer MEDICARE, OTHER, SELFPAY | PROVIDERS: PCP Family Medicine; Visit Provider Nurse Practitioner Family | DX: L08.9 Local infection of the skin and subcutaneous tissue, unspecified (principal) | CPT/HCPCS: 87070; 87075; 87077; 87147; 87205 ==

== ENCOUNTER → 2024-06-26 07:58 | Outpatient (CLI) | payer MEDICARE, OTHER, SELFPAY ==
[2024-06-26 08:42] LABS: Hematocrit 43.2 % (41-53); Hemoglobin 14.4 g/dL (13.5-17.5); Mean Corpuscular HGB Conc 33.3 % (30-36); Mean Corpuscular Hemoglobin 32.5 PG (26-34); Mean Corpuscular Volume 97.4 fL (80-100); Platelet Count 205 X10^3/uL (150-400); Red Blood Cell Count 4.43 X10^6/uL (4.5-5.9); Red Cell Distribution Width 13.2 % (11.6-14.8); White Blood Cell Count 7.1 X10^3/uL (4.5-11.0)
[2024-06-26 09:01] LABS: Alanine Aminotransferase 48 IU/L (<50); Albumin Globulin Ratio 1.9 (1.0-2.8); Alkaline Phosphatase 86 U/L (38-126); Aspartate Aminotransferase 98 IU/L (17-59); BUN Creatinine Ratio 13.2 (6-22); Bilirubin Total 0.8 mg/dL (0.2-1.3); Blood Urea Nitrogen 9 mg/dL (9-20); Calcium 9.2 mg/dL (8.4-10.2); Carbon Dioxide 29 mmol/L (22-32); Chloride 101 mmol/L (98-107); Cholesterol 120 mg/dL (140-199); Estimated Glomerular Filt Rate > 60 mL/min (>60); Globulin 2.1 g/dL (1.7-4.1); Glucose 108 mg/dL (80-110); HDL Cholesterol 80 mg/dL (40-60); HEMOLYSIS < 15 (0-50); LDL Cholesterol Calculated 29 mg/dL (<100); Sodium 136 mmol/L (137-145); Total Protein 6.1 g/dL (6.3-8.2); Triglycerides 57 mg/dL (35-150)
[2024-06-26 09:32] LABS: Prostate Specific Antigen Scrn 0.745 ng/mL (0.1-4.0)
[2024-06-26 15:57] LABS: Hep C Virus Ab w/Reflex Quant NEGATIVE s/c (NEGATIVE)
== END ==
PROVIDERS: PCP Family Medicine; Referring Provider Family Medicine; Visit Provider Family Medicine
DX: Z00.00 Encounter for general adult medical examination without abnormal findings (principal); I10 Essential (primary) hypertension; Z12.5 Encounter for screening for malignant neoplasm of prostate; Z11.59 Encounter for screening for other viral diseases; R79.89 Other specified abnormal findings of blood chemistry; E66.9 Obesity, unspecified
CPT/HCPCS: 36415; 80053; 80061; 85027; 86803; G0103

== ENCOUNTER 2024-07-25 08:14 | Emergency (ER) | payer MEDICARE, OTHER, SELFPAY ==
[2024-07-25 08:20] VITALS: BP 177/108; PULSE 73; RESP 18; O2SAT 97
[2024-07-25 08:27] VITALS: BP 177/108; PULSE 71; RESP 15; TEMP 36.6; O2SAT 98; BMI 30.1
[2024-07-25 08:30] VITALS: BP 176/97; PULSE 70; RESP 18; O2SAT 96
--- NOTE | 2024-07-25 08:30 | ED.FALL ---
HPI - Fall General Chief Complaint: Fall Stated Complaint: fell out of bed, head injury, [facility] Time Seen by Provider: 07/25/24 08:23 Source: patient Mode of arrival: Ambulatory Limitations: no limitations History of Present Illness HPI Narrative: Patient was a 79-year-old male. Not on anticoagulation. Here for evaluation of injuries that he sustained when he rolled out of bed this morning and hit the left side of his head. Reports no other injuries from the event. There was no loss of consciousness. He states he was unsure exactly what happened and thinks that he was just in a deep sleep when he rolled out of bed. Sustained a cut to his left ear. Went to the walk-in clinic who advised that he come to the emergency department for further evaluation. Related Data Home Medications Medication Instructions Recorded Confirmed cholecalciferol (vitamin D3) 25 1,000 unit PO DAILY ##0 03/01/11 06/25/24 mcg (1,000 unit) capsule (Vitamin D3) dorzolamide-timolol (PF) 2 %-0.5 % EYE-RIGHT BID 04/20/20 06/25/24 eye drops in a dropperette latanoprost 0.005 % eye drops EYE-BOTH QPM 04/20/20 06/25/24 ascorbic acid (vitamin C) 500 mg 500 mg PO DAILY prophylactically 03/15/23 06/25/24 tablet (Vitamin C) Previous Rx's Medication Instructions Recorded atorvastatin 20 mg tablet 20 mg PO DAILY #90 tabs 06/25/24 fluticasone propionate 50 1 spray intranasal BID #48 grams 06/25/24 mcg/actuation nasal spray,suspension (Flonase Allergy Relief) lisinopril 10 mg tablet 10 mg PO DAILY blood pressure #90 06/25/24 tabs Allergies Allergy/AdvReac Type Severity Reaction Status Date / Time Penicillins [PENICILLINS] Allergy Unknown A CHILD Verified 06/25/24 10:02 Review of Systems Review of Systems ROS Unobtainable: All systems reviewed & are unremarkable except as noted in HPI and below Patient History Medical History Encounter for subsequent annual wellness visit (AWV) in Medicare patient Elevated LFTs Alcohol use History of COVID-19 Obesity (BMI 30.0-34.9) COVID-19 HTN (hypertension) Chest pain Pneumonia Actinic keratosis (~1998) Osteopenia (~2013) Measles Chicken pox Retinal detachment (~2015) Cataracts, bilateral (~2015) H pylori ulcer (~10/2012) Surgical History Status post cholecystectomy (~2018) Hx of colonoscopy with polypectomy Anesthesia Detached retina, right (~2015) Detached retina, right (~2015) History of eye surgery (~2014) History of bilateral knee replacement (~07/2017) Skin cancer (~1998) Family History Father No problems noted. Mother Heart disease Brother Parkinson's disease Grandmother No problems noted. Grandfather No problems noted. Grandmother No problems noted. Social History marital status: household members: spouse lives independently: Yes education level: master's degree occupational status: other leisure activities: exercise and other other: hiking Smoking Status: Never smoker alcohol intake: current substance use type: does not use Smoking Status: Never smoker alcohol intake frequency: 0-2 drinks per day Exam Initial Vital Signs Initial Vital Signs: Vital Signs Pulse Rate 73 07/25/24 08:20 Respiratory Rate 18 07/25/24 08:20 Blood Pressure 177/108 H 07/25/24 08:20 Pulse Oximetry 97 07/25/24 08:20 Oxygen Delivery Method Room Air 07/25/24 08:20 Const General: cooperative, comfortable, well developed and No ill appearing HENMD Head: normal to inspection, normocephalic, No contusion and No laceration Ears: TM normal on the left and EAC's normal Back/Spine/Pelvis Cervical Spine: cervical muscular tenderness and No cervical spinal tenderness Skin Other: 1 cm laceration on the external portion of the left ear involving the small part of the tragus Neuro General: patient alert, patient awake and moves all extremities Extrem General: normal to inspection and capillary refill normal Procedures Laceration Repair Laceration 1: Site: other (ear) Side (If applicable): left Size (cm): 2 Description: linear Depth: simple, single layer Skin layer closed with: dermabond Scores Parke CT Head Rule Age <16 years old: No Patient on blood thinners: No Seizure after injury: No Exclusion: Patient NOT Excluded, Proceed to next steps GCS < 15 at 2 hr post trauma: No Suspected open or depressed skull fracture: No Any sign of basilar skull fracture (hemotympanum, raccoon eyes, Gan's sign, CSF whit-/rhinorrhea): No Two or more episodes of vomiting: No Age greater or equal to 65 years: Yes Retrograde amnesia to the event greater or equal to 30 min: No Dangerous Mechanism (pedestrian vs. mv, occupant ejected from mv, fall from >3 ft or > 5 stairs): No Recommendation: Consider CT. The Parke Head CT Rule cannot rule out need for Imaging. GCS Ayala coma scale eye opening: Spontaneous Ayala coma scale verbal response: Orientated Ayala coma scale motor response: Obey commands [place] coma scale total score: 15 Course Orders Ordered: ED Orders 07/25/24 08:31 CT cervical spine wo con Stat CT head/brain wo con Stat Vital Signs Vital signs: Vital Signs - 8 hr 07/25/24 08:20 07/25/24 08:20 07/25/24 08:27 Temperature 97.9 F Pulse Rate 73 71 Respiratory Rate 18 15 Blood Pressure 177/108 H 177/108 H Pulse Oximetry 97 98 Oxygen Delivery Method Room Air Room Air 07/25/24 08:30 07/25/24 08:30 Temperature Pulse Rate 70 Respiratory Rate 18 Blood Pressure 176/97 H Pulse Oximetry 96 Oxygen Delivery Method MDM - Fall Imaging Data CT scan - head: Radiologist's Impression: PROCEDURE: CT HEAD/BRAIN WO CON INDICATIONS: fall with head injury TECHNIQUE: Noncontrast 4.5 mm thick angled axial sections acquired from the foramen magnum to the vertex, with coronal and sagittal reformats. For radiation dose reduction, the following was used: automated exposure control, adjustment of mA and/or kV according to patient size. COMPARISON: 06/27/2015. FINDINGS: Image quality: Diagnostic. CSF spaces: Basal cisterns are patent. No extra-axial fluid collections. The ventricles are symmetric in size and shape. Brain: No intracranial bleeds or masses. There is cerebral volume loss for age, with resultant ventricular and sulcal prominence. There are periventricular and deep white matter chronic small vessel ischemic changes. There is intracranial internal carotid artery atherosclerosis. Skull and face: Calvarium and visualized facial bones appear intact, without suspicious lesions. Sinuses: Mild mucosal thickening in bilateral maxillary sinuses, ethmoid sinuses and ethmoid sinuses are seen. Bilateral mastoid air cells are well aerated. IMPRESSION: 1. No acute intracranial pathology. 2. No gross acute skull fracture. 3. Age related volume loss and mild white matter small vessel chronic ischemic changes. 4. Mild chronic appearing bilateral sinusitis as above. CT - cervical spine: Radiologist's Impression: PROCEDURE: CT CERVICAL SPINE WO CON INDICATIONS: fall with head injury TECHNIQUE: Noncontrast 3 mm thick sections acquired from the skull base to the T4 level. Sagittal and coronal reformats were then constructed. For radiation dose reduction, the following was used: automated exposure control, adjustment of mA and/or kV according to patient size. COMPARISON: None. FINDINGS: Image quality: Excellent. Bones: No fractures or dislocations. Loss of disc height, degenerative endplate changes and bilateral uncovertebral hypertrophic changes are noted throughout cervical spine causing avag-zc-rxfmriah central canal stenosis and bilateral neural foraminal narrowing more notably at C4-5 through C6-7 levels. 2 millimeter anterolisthesis of C3 on C4 and 2 millimeter retrolisthesis of C4 on C5 is seen. Visualized superior ribs are intact. Soft tissues: Prevertebral soft tissues are normal in thickness. No paravertebral hematomas. No apical pneumothoraces. IMPRESSION: 1. No displaced fractures or traumatic subluxation. 2. Degenerative disc disease throughout cervical spine. MDM Narrative Medical decision making narrative: Patient was alert and oriented x3. GCS of 15. Head CT and cervical spine CT showed no acute pathology. The superficial laceration to his left ear was closed with Dermabond and Steri-Strips with well approximation. Will discharge home with care instructions and return precautions. No other injuries reported by the patient on questioning or on exam. She was given return precautions. Discharge Plan Departure Patient Disposition: Home Clinical Impression: Laceration of ear Instructions: DI for Laceration Repair-Skin Glue Activity Restrictions/Additional Instructions: You can shower like normal. You can put topical antibiotic ointment such as Neosporin or bacitracin over the laceration. Contact your primary doctor for a follow-up. Return to the emergency department for new or worsening symptoms. Prescriptions: No Action cholecalciferol (vitamin D3) [Vitamin D3] 1,000 unit Capsule 1,000 unit PO DAILY Qty: 0 latanoprost 0.005 % drops EYE-BOTH QPM dorzolamide-timolol (PF) 2-0.5 % dropperette EYE-RIGHT BID atorvastatin 20 mg tablet 20 mg PO DAILY Qty: 90 3RF lisinopril 10 mg tablet 10 mg PO DAILY Qty: 90 3RF fluticasone propionate [Flonase Allergy Relief] 50 mcg/actuation spray,suspension 1 spray intranasal BID Qty: 48 3RF Rx Instructions: administer into each nostril ascorbic acid (vitamin C) [Vitamin C] 500 mg tablet 500 mg PO DAILY Referrals: Melissa Foster DO [Primary Care Provider] - Stand Alone Forms: Patient Portal/API/Survey
[2024-07-25 09:00] VITALS: BP 170/92; PULSE 71; RESP 18; O2SAT 98
== END 2024-07-25 09:40 | disposition home or self-care (01) ==
PROVIDERS: Emergency Provider Emergency Medicine; PCP Family Medicine
DX: S01.312A Laceration without foreign body of left ear, initial encounter (principal); W06.XXXA Fall from bed, initial encounter; Y93.84 Activity, sleeping
CPT/HCPCS: 12011; 70450; 72125; 99283; 99284

== ENCOUNTER 2024-09-22 10:45 | Outpatient (RCR) | payer MEDICARE, OTHER, SELFPAY ==
--- NOTE | 2024-08-19 15:50 | PT.OIE ---
Current Diagnoses Stiffness of right hip, not elsewhere classified (08/19/24) Stiffness of left hip, not elsewhere classified (08/19/24) Stiffness of right knee, not elsewhere classified (08/19/24) Stiffness of left knee, not elsewhere classified (08/19/24) Unsteadiness on feet (08/19/24) Other abnormalities of gait and mobility (08/19/24) Weakness (08/19/24) Past Medical History (Last Reviewed 07/25/24 @ 08:39 by Regis Perez DO) Actinic keratosis (~1998) Alcohol use Cataracts, bilateral (~2015) Chest pain Chicken pox COVID-19 Elevated LFTs Encounter for subsequent annual wellness visit (AWV) in Medicare patient H pylori ulcer (~10/2012) History of COVID-19 HTN (hypertension) Measles Obesity (BMI 30.0-34.9) Osteopenia (~2013) Pneumonia Retinal detachment (~2015) Past Surgical History (Last Reviewed 02/26/23 @ 10:15 by Nicky Faustin PA-C) Anesthesia Detached retina, right (~2015) Detached retina, right (~2015) History of bilateral knee replacement (~07/2017) History of eye surgery (~2014) Hx of colonoscopy with polypectomy Skin cancer (~1998) Status post cholecystectomy (~2018) Visit Care Team Role Provider Type Melissa Foster DO Attending Provider Physician Family Provider Primary Care Provider Referring Provider Specialty: Family Practice Address: [address] [place] [address], [address], [facility] Email: [email or web address] Initial Evaluation PT-OP-A Visit Information Start: 08/19/24 10:39 Freq: Status: Active Protocol: Document 08/19/24 11:34 NM (Rec: 08/19/24 12:26 NM [id number]) Out-Patient Physical Therapy Visit Information Visit Information Visit Type Initial Evaluation Visit Start Time 11:35 Visit Stop Time 12:15 Visit Number 1 Evaluation Information Evaluation Date 08/19/24 Precautions Precautions hx falls, B TKA PT-OP-B Current Condition Start: 08/19/24 10:39 Freq: Status: Active Protocol: Document 08/19/24 11:34 NM (Rec: 08/19/24 12:26 NM [id number]) Current Condition History of Current Condition Onset Date 1-2 years ago Current Complaints poor balance especially in laterally History of Current Condition Pt presents with balance and gait abnormalities. Hx of B TKA in 2018. He reports that he noticed his balance worsening since covid. Reports increased lateral sway on boat and on walks, reports feeling off balance as he bends over to pick things up. Since 2023, pt has had 2 falls . He reports that they happened when bending over to empty trash car. Pt has walking sticks, does not have cane. Pt reports that he has noticed that he feels lightheaded and unsure of his feet. He has high blood pressure. He reports that he does have more lightheadedness with postional changes. Pt reports that he uses a night light, has clear floor; hsas to get up 1-2 times per time, occasionally 3x. Uses railing for stairs to avoid falls. Goes to gym 5x/wk (cardio, machines); currently trying to lose weight, reports that this is the heaviest that he's been. Current Functional Impairments (Reported) Functional Limitations- ADL's donning socks due to hip rotation Functional Limitations- Mobility/Gait daily ambulation car transfers (prius) Functional Limitations- Recreation/ camping/hiking - using rails Hobbies PT-OP-C Subjective Start: 08/19/24 10:39 Freq: Status: Active Protocol: Document 08/19/24 11:34 NM (Rec: 08/19/24 12:26 NM [id number]) OP-PT Subjective Patient Comments Patient Comments Pt consents to participate in PT evaluation Patient Questionnaires ABC- Activity Specific Balance Confidence Scale ABC Score 62.5% Dizziness Handicap Inventory DHI Score 24 Other Questionnaire Name and Score Falls Efficacy Scale: 64 OP-PT Pain Assessment Location low back Pain Location Details B paraspinal Description Aching Pain Aggravating Factors Position,Standing,Walking, Bending,Lifting Other Pain Aggravating Factors worse with walking long periods Pain Alleviating Factors Sitting,Rest PT-OP-D Balance Start: 08/19/24 10:39 Freq: Status: Active Protocol: Document 08/19/24 11:34 NM (Rec: 08/19/24 12:26 NM [id number]) Balance Tests Santos Balance Test Santos Balance Test Score 44/56 Other Other Balance Tests Performed Functional Gait Assessment ( FGA): PT-OP-E Functional Tests Start: 08/19/24 10:39 Freq: Status: Active Protocol: Document 08/19/24 11:34 NM (Rec: 08/19/24 12:26 NM [id number]) Functional Tests 30 Second Sit to Stand Test Score 10 Comments from standard chair Five Times Sit to Stand Test Score 13 seconds Comments from standard chair PT-OP-G Mobility & Gait Start: 08/19/24 10:39 Freq: Status: Active Protocol: Document 08/19/24 11:34 NM (Rec: 08/19/24 12:26 NM [id number]) OP Gait Assessment Gait Gait Assistance Required: Independent Distance (Feet) 150 Comments Gait Comments Slow gait speed, increased NADER , no AD use PT-OP-J Posture/Palpation/Skin Start: 08/19/24 10:39 Freq: Status: Active Protocol: Document 08/19/24 11:34 NM (Rec: 08/19/24 12:26 NM [id number]) Posture Evaluation Position Standing Head/C-Spine Posture Forward Head T-Spine Posture Increased Kyphosis Pelvis Posture Posterior Tilted Weight Distribution Balanced Ankle/Foot Posture (L) Pronated,(R) Pronated PT-OP-M Strength Start: 08/19/24 10:39 Freq: Status: Active Protocol: Document 08/19/24 11:34 NM (Rec: 08/19/24 12:26 NM [id number]) Trunk Strength Trunk Manual Muscle Testing Flexion 3+ Fair+ Extension 3+ Fair+ Rotation Left 3+ Fair+ Rotation Right 3+ Fair+ Lateral Flexion Left 3+ Fair+ Lateral Flexion Right 3+ Fair+ Comments demos stepping reaction to changes in resistance Hip Strength Hip Manual Muscle Testing Right Flexion (L2) 4 Good Extension (S1) 4- Good- Abduction 4- Good- Adduction 4 Good External Rotation 4 Good Internal Rotation 4 Good Left Flexion (L2) 4- Good- Extension (S1) 4- Good- Abduction 4- Good- Adduction 4 Good External Rotation 4 Good Internal Rotation 4 Good Knee Strength Knee Manual Muscle Testing Right Flexion (S2) 4 Good Extension (L3) 4 Good Left Flexion (S2) 4 Good Extension (L3) 4 Good Ankle/Foot Strength Ankle and Foot Manual Muscle Testing Right Dorsiflexion (L4) 4 Good Plantarflexion (S1) 4 Good Inversion 4- Good- Eversion (S1) 4- Good- Left Dorsiflexion (L4) 4 Good Plantarflexion (S1) 4 Good Inversion 4- Good- Eversion (S1) 4- Good- PT-OP-Q Treatments Start: 08/19/24 10:39 Freq: Status: Active Protocol: Document 08/19/24 11:34 NM (Rec: 08/19/24 12:26 NM [id number]) Therapeutic Exercises Sitting Exercises ankle eversion Side bilateral Resistance level 2 band ankle inversion Side bilateral Resistance level 2 band Self-Care/Home Management Treatment Education Patient Education Fall Risk Other Education 8 minutes- education on balance systems, blood pressure, fall risk, and strategies to reduce fall risk based on current household set up and habits at night. Recommended trial trek poles for gait on longer walks with for balance PT-OP-T Assessment and Plan Start: 08/19/24 10:39 Freq: Status: Active Protocol: Document 08/19/24 11:34 NM (Rec: 08/19/24 12:26 NM [id number]) Physical Therapy Assessment Rehab Potential Rehabilitation Potential Good Evaluation Complexity Number of Personal Factors/Comorbidities 1-2 Number of Body Systems Impaired 3 Clinical Presentation at Evaluation Stable Impairments Impairments Activity Tolerance,Balance, Functional Activities, Functional Mobility,Gait,Pain, Posture,ROM,Sensation,Soft Tissue Mobility,Strength, Transfers,Vestibular Other Concerns Age Related Concerns PMH: blood press (high), falls , surgeries: hx of B TKA 2017 Medications: lisenopril, atorvastatin Goals Three Impairment hx of falls, not performing HEP Short Term Goal (STG) Pt will be provided with education regarding strategies to reduce fall risk due to hx of falls STG Duration 3 weeks Assisted Goal (LTG) Pt will report compliance with HEP at least 3x/wk to transition to maintenance program upon discharge from PT LTG Duration 8 weeks Two Impairment 5x STS in 13 sec, 30 sec STS 10 reps Assisted Goal (LTG) Pt will be able to perform at least 14 reps (age related norm) during 30 sec STS in order to demonstrate improvev endurance, BLE strength, and initial standing balance during transfers LTG Duration 8 weeks One Impairment FGA 16/30, Santos 44/56 Certified Scrub Tech Goal (LTG) Pt will increase FGA score >22 /30 (WFL) in order to demonstrate decreased fall risk during household and community ambulation LTG Duration 8 weeks Assessment Summary Assessment Pt is a 79 y.o. presenting with balance and gait impairments. He has a hx of fall including 2 in 2023. Pt demonstrates impairments in ROM, strength, gait, balance, pain management, and activity tolerance. Pt's LLE strength is more limited than R side. Pt had a hx of low back pain in addition to PMH consisting of B TKA and high blood pressure. Pt is at increased risk of falls due to hx, subjective report of several trips to bathroom at night, and hx of lightheadedness with positional changes and bending forward; will assess pt for orthostatic changes in future sessions. Pt's Santos score is 44/56 and his Functional Gait Assessment is 16/30, both indicating increased risk of falls for both static balance in addition to household and community ambulation. Pt is below average for both 5x STS tests adn 30 sec STS tests. PT educated pt on exam findings and plan of care. Pt would benefit from skilled PT for progressive strengthening, flexibility, and balance training in order to decrease fall risk, improve confidence and independence with mobility . Physical Therapy Plan Frequency and Duration Frequency of Treatment 2x/Week Duration of treatment (weeks) 8 Plan of Care Start Date 08/19/24 Plan of Care End Date 10/17/24 Therapeutic Interventions Therapeutic Interventions Balance Training,Gait Training ,Home Exercise Program,Joint Mobilizations,Manual Therapy, Neuromuscular Re-education, Orthotic/Prosthetic Management ,Patient/Caregiver Education, Self-Care/Home Management, Sensory Integration,Soft Tissue Mobilization,Taping, Therapeutic Activities, Therapeutic Exercises Modalities Cold Pack/Ice Massage,Electric Stimulation,Hot Packs, Ultrasound Next Visit Focus/Plan Next Note Type Treatment Note Next Visit Plan review ankle strengthening HEP . Assess orthostatics. Leg press, STS, stairs, hip abduction strengthening, ankle strength sagittal, lateral. Fall risk handout. assess hip mobility, trial stretching program if sanjeev well initiate balance training: hurdles, stable and unstable, SLS, narrow NADER, eyes open/ closed, reactionary and anticipatory balance reactions , rocker board.
--- NOTE | 2024-08-21 10:46 | PT.OTN ---
Current Diagnoses Stiffness of right hip, not elsewhere classified (08/21/24) Stiffness of left hip, not elsewhere classified (08/21/24) Stiffness of right knee, not elsewhere classified (08/21/24) Stiffness of left knee, not elsewhere classified (08/21/24) Unsteadiness on feet (08/21/24) Other abnormalities of gait and mobility (08/21/24) Weakness (08/21/24) Physical Therapy Treatment Note PT-OP-A Visit Information Start: 08/19/24 10:39 Freq: Status: Active Protocol: Document 08/21/24 09:02 NM (Rec: 08/21/24 10:46 NM [id number]) Out-Patient Physical Therapy Visit Information Visit Information Visit Type Treatment Note Visit Start Time 09:02 Visit Stop Time 09:45 Visit Number 2 Evaluation Information Evaluation Date 08/19/24 Precautions Precautions hx falls, B TKA PT-OP-B Current Condition Start: 08/19/24 10:39 Freq: Status: Active Protocol: Document 08/19/24 11:34 NM (Rec: 08/19/24 12:26 NM [id number]) Current Condition History of Current Condition Onset Date 1-2 years ago Current Complaints poor balance especially in laterally History of Current Condition Pt presents with balance and gait abnormalities. Hx of B TKA in 2018. He reports that he noticed his balance worsening since covid. Reports increased lateral sway on boat and on walks, reports feeling off balance as he bends over to pick things up. Since 2023, pt has had 2 falls . He reports that they happened when bending over to empty trash car. Pt has walking sticks, does not have cane. Pt reports that he has noticed that he feels lightheaded and unsure of his feet. He has high blood pressure. He reports that he does have more lightheadedness with postional changes. Pt reports that he uses a night light, has clear floor; hsas to get up 1-2 times per time, occasionally 3x. Uses railing for stairs to avoid falls. Goes to gym 5x/wk (cardio, machines); currently trying to lose weight, reports that this is the heaviest that he's been. Current Functional Impairments (Reported) Functional Limitations- ADL's donning socks due to hip rotation Functional Limitations- Mobility/Gait daily ambulation car transfers (prius) Functional Limitations- Recreation/ camping/hiking - using rails Hobbies PT-OP-C Subjective Start: 08/19/24 10:39 Freq: Status: Active Protocol: Document 08/21/24 09:02 NM (Rec: 08/21/24 10:46 NM [id number]) OP-PT Subjective Patient Comments Patient Comments Pt presents with B trek poles. He has tried ankle exercises. Has been going to the gym PT-OP-D Balance Start: 08/19/24 10:39 Freq: Status: Active Protocol: Document 08/19/24 11:34 NM (Rec: 08/19/24 12:26 NM [id number]) Balance Tests Santos Balance Test Santos Balance Test Score 44/56 Other Other Balance Tests Performed Functional Gait Assessment ( FGA): PT-OP-E Functional Tests Start: 08/19/24 10:39 Freq: Status: Active Protocol: Document 08/19/24 11:34 NM (Rec: 08/19/24 12:26 NM [id number]) Functional Tests 30 Second Sit to Stand Test Score 10 Comments from standard chair Five Times Sit to Stand Test Score 13 seconds Comments from standard chair PT-OP-G Mobility & Gait Start: 08/19/24 10:39 Freq: Status: Active Protocol: Document 08/19/24 11:34 NM (Rec: 08/19/24 12:26 NM [id number]) OP Gait Assessment Gait Gait Assistance Required: Independent Distance (Feet) 150 Comments Gait Comments Slow gait speed, increased NADER , no AD use PT-OP-J Posture/Palpation/Skin Start: 08/19/24 10:39 Freq: Status: Active Protocol: Document 08/19/24 11:34 NM (Rec: 08/19/24 12:26 NM [id number]) Posture Evaluation Position Standing Head/C-Spine Posture Forward Head T-Spine Posture Increased Kyphosis Pelvis Posture Posterior Tilted Weight Distribution Balanced Ankle/Foot Posture (L) Pronated,(R) Pronated PT-OP-M Strength Start: 08/19/24 10:39 Freq: Status: Active Protocol: Document 08/19/24 11:34 NM (Rec: 08/19/24 12:26 NM [id number]) Trunk Strength Trunk Manual Muscle Testing Flexion 3+ Fair+ Extension 3+ Fair+ Rotation Left 3+ Fair+ Rotation Right 3+ Fair+ Lateral Flexion Left 3+ Fair+ Lateral Flexion Right 3+ Fair+ Comments demos stepping reaction to changes in resistance Hip Strength Hip Manual Muscle Testing Right Flexion (L2) 4 Good Extension (S1) 4- Good- Abduction 4- Good- Adduction 4 Good External Rotation 4 Good Internal Rotation 4 Good Left Flexion (L2) 4- Good- Extension (S1) 4- Good- Abduction 4- Good- Adduction 4 Good External Rotation 4 Good Internal Rotation 4 Good Knee Strength Knee Manual Muscle Testing Right Flexion (S2) 4 Good Extension (L3) 4 Good Left Flexion (S2) 4 Good Extension (L3) 4 Good Ankle/Foot Strength Ankle and Foot Manual Muscle Testing Right Dorsiflexion (L4) 4 Good Plantarflexion (S1) 4 Good Inversion 4- Good- Eversion (S1) 4- Good- Left Dorsiflexion (L4) 4 Good Plantarflexion (S1) 4 Good Inversion 4- Good- Eversion (S1) 4- Good- PT-OP-Q Treatments Start: 08/19/24 10:39 Freq: Status: Active Protocol: Document 08/21/24 09:02 NM (Rec: 08/21/24 10:46 NM [id number]) Therapeutic Exercises Sitting Exercises sit to stand Side bilateral Resistance level 2 band at thighs Reps/Minutes 10 Comments challenging ankle eversion Sitting Exercise Name HEP review: 1 set with PF bias , 1 set with DF Side bilateral Resistance level 2 band Reps/Minutes 2 sets of 20 ea - band around ankles under feet Comments able to self don/doff; cued set up as needed, limit hip compensations ankle inversion Sitting Exercise Name HEP review: 1 set with PF bias , 1 set with DF bias Side bilateral Resistance level 2 band Reps/Minutes 2 sets of 20 ea - band around ankles Standing Exercises squat Side bilateral Equipment Used level 2 band Reps/Minutes 5x10 hold Comments pt does at gym; performed for hip extension Standing Exercise Name HEP Side bilateral Resistance level 2 band at thighs Equipment Used B hand support on bar for balance Reps/Minutes 2x10 ea Comments cued tall posture; L weaker hip abduction Standing Exercise Name HEP Side bilateral Resistance level 2 band at ankles > thighs Equipment Used B hand support on bar for balance Reps/Minutes 2x10 ea Comments cued tall posture, no trunk lean; L weaker Gait Training Gait Activity trek poles Device Used 1-2 poles Level of Assistance close SBA Surface indoor, outdoor: gravel,grass, incline/decline, stairs, sidewalk, carpet Distance/Duration 15 min Treatment Focus sequencing, balance for longer distances Comments Cueing needed for safety, sequencing 1. 2 trek poles 2 pt pattern, trunk rot, tall posture. slightly lowered for improved elbow angle, and to promote trunk rot. improved stability with 2 but challenging to coordinate 2. 1 trek pole for use with shorter distances . educated on hand placement with downward pressure, able to coordinate better with 2pt pattern than 2 poles, better posture and rotation Neuro Re-Education Treatment Balance Activities tandem Surface stable Equipment close SBA Comments 1. stance, 2x30 ea 2. stepping, 2x10 ft SLS Surface stable Equipment prn hand support on bar Reps/Duration 2x30 ea foot Comments close SBA L more challenging than R PT-OP-T Assessment and Plan Start: 08/19/24 10:39 Freq: Status: Active Protocol: Document 08/21/24 09:02 NM (Rec: 08/21/24 10:46 NM [id number]) Physical Therapy Assessment Goals Three Impairment hx of falls, not performing HEP Short Term Goal (STG) Pt will be provided with education regarding strategies to reduce fall risk due to hx of falls STG Duration 3 weeks Intermediate Goal (LTG) Pt will report compliance with HEP at least 3x/wk to transition to maintenance program upon discharge from PT LTG Duration 8 weeks Two Impairment 5x STS in 13 sec, 30 sec STS 10 reps Intermediate Goal (LTG) Pt will be able to perform at least 14 reps (age related norm) during 30 sec STS in order to demonstrate improvev endurance, BLE strength, and initial standing balance during transfers LTG Duration 8 weeks One Impairment FGA 16/30, Santos 44/56 Intermediate Goal (LTG) Pt will increase FGA score >22 /30 (WFL) in order to demonstrate decreased fall risk during household and community ambulation LTG Duration 8 weeks Assessment Summary Assessment Pt tolerated session well. Emphasis on initiating strength training to support balance training. HEP review for correct execution as pt did not recall band placement. Initiated standing hip strengthening for trunk/glute control in stance, will progress to stepping in future to address instability laterally. Gait training with trek poles for stability on pt 's walks with . Initially challenging for coordination fo sequencing but able to progress to use indoors/ outdoors, stable and unstable surfaces. Narrow NADER still most challenging but able to perform without UE assist and minimal steadiness assist from PT. Pt would continue to benefit from skilled PT for progressive strengthening and balance training to reduce fall risk. Physical Therapy Plan Frequency and Duration Frequency of Treatment 2x/Week Duration of treatment (weeks) 8 Plan of Care Start Date 08/19/24 Plan of Care End Date 10/17/24 Therapeutic Interventions Therapeutic Interventions Balance Training,Gait Training ,Home Exercise Program,Joint Mobilizations,Manual Therapy, Neuromuscular Re-education, Orthotic/Prosthetic Management ,Patient/Caregiver Education, Self-Care/Home Management, Sensory Integration,Soft Tissue Mobilization,Taping, Therapeutic Activities, Therapeutic Exercises Modalities Cold Pack/Ice Massage,Electric Stimulation,Hot Packs, Ultrasound Next Visit Focus/Plan Next Note Type Treatment Note Next Visit Plan Focus balance training- can use bungee, unstable surface, less visual support. Assess orthostatics in future. Leg press, STS, stairs, hip abduction strengthening, ankle strength sagittal, lateral. Fall risk handout. assess hip mobility, trial stretching program if sanjeev well initiate balance training: hurdles, stable and unstable, SLS, narrow NADER, eyes open/ closed, reactionary and anticipatory balance reactions , rocker board.
--- NOTE | 2024-08-28 12:15 | PT.OTN ---
Current Diagnoses Stiffness of right hip, not elsewhere classified (08/28/24) Stiffness of left hip, not elsewhere classified (08/28/24) Stiffness of right knee, not elsewhere classified (08/28/24) Stiffness of left knee, not elsewhere classified (08/28/24) Unsteadiness on feet (08/28/24) Other abnormalities of gait and mobility (08/28/24) Weakness (08/28/24) Physical Therapy Treatment Note PT-OP-A Visit Information Start: 08/19/24 10:39 Freq: Status: Active Protocol: Document 08/28/24 11:36 SP (Rec: 08/28/24 12:27 SP [id number]) Out-Patient Physical Therapy Visit Information Visit Information Visit Type Treatment Note Visit Start Time 11:36 Visit Stop Time 12:15 Visit Number 3 Number of ASSISTANT SPA DIRECTOR Visits 1 Evaluation Information Evaluation Date 08/19/24 Precautions Precautions hx falls, B TKA PT-OP-B Current Condition Start: 08/19/24 10:39 Freq: Status: Active Protocol: Document 08/19/24 11:34 NM (Rec: 08/19/24 12:26 NM [id number]) Current Condition History of Current Condition Onset Date 1-2 years ago Current Complaints poor balance especially in laterally History of Current Condition Pt presents with balance and gait abnormalities. Hx of B TKA in 2018. He reports that he noticed his balance worsening since covid. Reports increased lateral sway on boat and on walks, reports feeling off balance as he bends over to pick things up. Since 2023, pt has had 2 falls . He reports that they happened when bending over to empty trash car. Pt has walking sticks, does not have cane. Pt reports that he has noticed that he feels lightheaded and unsure of his feet. He has high blood pressure. He reports that he does have more lightheadedness with postional changes. Pt reports that he uses a night light, has clear floor; hsas to get up 1-2 times per time, occasionally 3x. Uses railing for stairs to avoid falls. Goes to gym 5x/wk (cardio, machines); currently trying to lose weight, reports that this is the heaviest that he's been. Current Functional Impairments (Reported) Functional Limitations- ADL's donning socks due to hip rotation Functional Limitations- Mobility/Gait daily ambulation car transfers ([facility]) Functional Limitations- Recreation/ camping/hiking - using rails Hobbies PT-OP-C Subjective Start: 08/19/24 10:39 Freq: Status: Active Protocol: Document 08/28/24 11:36 SP (Rec: 08/28/24 12:27 SP [id number]) OP-PT Subjective Patient Comments Patient Comments Pt reports wants to review ankle band exercises, challenged by IV anchoring band, is there an easier way to do? PT-OP-D Balance Start: 08/19/24 10:39 Freq: Status: Active Protocol: Document 08/19/24 11:34 NM (Rec: 08/19/24 12:26 NM [id number]) Balance Tests Santos Balance Test Santos Balance Test Score 44/56 Other Other Balance Tests Performed Functional Gait Assessment ( FGA): PT-OP-E Functional Tests Start: 08/19/24 10:39 Freq: Status: Active Protocol: Document 08/19/24 11:34 NM (Rec: 08/19/24 12:26 NM [id number]) Functional Tests 30 Second Sit to Stand Test Score 10 Comments from standard chair Five Times Sit to Stand Test Score 13 seconds Comments from standard chair PT-OP-G Mobility & Gait Start: 08/19/24 10:39 Freq: Status: Active Protocol: Document 08/19/24 11:34 NM (Rec: 08/19/24 12:26 NM [id number]) OP Gait Assessment Gait Gait Assistance Required: Independent Distance (Feet) 150 Comments Gait Comments Slow gait speed, increased NADER , no AD use PT-OP-J Posture/Palpation/Skin Start: 08/19/24 10:39 Freq: Status: Active Protocol: Document 08/19/24 11:34 NM (Rec: 08/19/24 12:26 NM [id number]) Posture Evaluation Position Standing Head/C-Spine Posture Forward Head T-Spine Posture Increased Kyphosis Pelvis Posture Posterior Tilted Weight Distribution Balanced Ankle/Foot Posture (L) Pronated,(R) Pronated PT-OP-M Strength Start: 08/19/24 10:39 Freq: Status: Active Protocol: Document 08/19/24 11:34 NM (Rec: 08/19/24 12:26 NM [id number]) Trunk Strength Trunk Manual Muscle Testing Flexion 3+ Fair+ Extension 3+ Fair+ Rotation Left 3+ Fair+ Rotation Right 3+ Fair+ Lateral Flexion Left 3+ Fair+ Lateral Flexion Right 3+ Fair+ Comments demos stepping reaction to changes in resistance Hip Strength Hip Manual Muscle Testing Right Flexion (L2) 4 Good Extension (S1) 4- Good- Abduction 4- Good- Adduction 4 Good External Rotation 4 Good Internal Rotation 4 Good Left Flexion (L2) 4- Good- Extension (S1) 4- Good- Abduction 4- Good- Adduction 4 Good External Rotation 4 Good Internal Rotation 4 Good Knee Strength Knee Manual Muscle Testing Right Flexion (S2) 4 Good Extension (L3) 4 Good Left Flexion (S2) 4 Good Extension (L3) 4 Good Ankle/Foot Strength Ankle and Foot Manual Muscle Testing Right Dorsiflexion (L4) 4 Good Plantarflexion (S1) 4 Good Inversion 4- Good- Eversion (S1) 4- Good- Left Dorsiflexion (L4) 4 Good Plantarflexion (S1) 4 Good Inversion 4- Good- Eversion (S1) 4- Good- PT-OP-Q Treatments Start: 08/19/24 10:39 Freq: Status: Active Protocol: Document 08/28/24 11:36 SP (Rec: 08/28/24 12:27 SP [id number]) Therapeutic Exercises Sitting Exercises sit to stand Sitting Exercise Name reviewed 2/6 Side bilateral Resistance level 2 band at thighs Equipment Used mesh chair, arms across chest Reps/Minutes 15 reps Comments occ cue hip hinge slower ecc full sit to chair- ankle eversion Sitting Exercise Name HEP review: 1 set with PF bias , 1 set with DF Side bilateral Resistance level 2>3 band- anchored around opp ft Reps/Minutes 3 sets of 10 ea Comments cued set up with new HO, limit hip compensations ankle inversion Sitting Exercise Name HEP review: 1 set with PF bias , 1 set with DF bias Side bilateral Resistance level 2>3 band- anchored around opp ft Reps/Minutes 3 sets of 10 ea - band around ankles Comments improved with update HO anchored opp LE Standing Exercises resisted side stepping Standing Exercise Name added to HEP /c HO (next add fwd/bwd) Side bilateral Resistance TB #2 at shins Equipment Used (open area)- SBA Reps/Minutes 10 ft x2 laps Comments occ cue DF and slower eccentric together return squat Standing Exercise Name Air squat arms front- self HEP at gym Side bilateral Equipment Used level 2 band- at thighs Reps/Minutes 5x10 hold Comments good form hip extension Standing Exercise Name HEP Side bilateral Resistance level 2 band at thighs> shins Equipment Used B hand support on bar for balance Reps/Minutes 2x10 ea Comments improved self corrections upright trunk; L little more tiring hip abduction Standing Exercise Name HEP Side bilateral Resistance level 2 band thighs>shins Equipment Used B hand support on bar for balance Reps/Minutes 2x10 ea Comments improved self corrections upright trunk; L little more tiring Neuro Re-Education Treatment Balance Activities dyanmic stepping Details Fwd, Backward stepping, Tandem Surface tile Equipment trialed in PT end tx Reps/Duration hallway 50 ft x2 laps each Comments HTs: fwd (pretty good) bwd (smaller steps) EO tandem fwd finger glide wall Cued tall posture, TA, rhomboid fac: increase stride bwd and heel to toe tandem. PT-OP-T Assessment and Plan Start: 08/19/24 10:39 Freq: Status: Active Protocol: Document 08/28/24 11:36 SP (Rec: 08/28/24 12:27 SP [id number]) Physical Therapy Assessment Goals Three Impairment hx of falls, not performing HEP Short Term Goal (STG) Pt will be provided with education regarding strategies to reduce fall risk due to hx of falls STG Duration 3 weeks Forensic Medical Examiner Goal (LTG) Pt will report compliance with HEP at least 3x/wk to transition to maintenance program upon discharge from PT LTG Duration 8 weeks Two Impairment 5x STS in 13 sec, 30 sec STS 10 reps Shelter Goal (LTG) Pt will be able to perform at least 14 reps (age related norm) during 30 sec STS in order to demonstrate improvev endurance, BLE strength, and initial standing balance during transfers LTG Duration 8 weeks One Impairment FGA 16/30, Santos 44/56 Shelter Goal (LTG) Pt will increase FGA score >22 /30 (WFL) in order to demonstrate decreased fall risk during household and community ambulation LTG Duration 8 weeks Assessment Summary Assessment Pt improved understanding set up ankle TB positioning and direction performance with new HOs with need increase resistance. Improved STS no UE support, progressed resisted side stepping (next add fwd/ bwd). Smaller stride back stepping and need FInger glide wall tandem and back stepping safety in PT, cues for postural corrections for midline stability. Physical Therapy Plan Frequency and Duration Frequency of Treatment 2x/Week Duration of treatment (weeks) 8 Plan of Care Start Date 08/19/24 Plan of Care End Date 10/17/24 Therapeutic Interventions Therapeutic Interventions Balance Training,Gait Training ,Home Exercise Program,Joint Mobilizations,Manual Therapy, Neuromuscular Re-education, Orthotic/Prosthetic Management ,Patient/Caregiver Education, Self-Care/Home Management, Sensory Integration,Soft Tissue Mobilization,Taping, Therapeutic Activities, Therapeutic Exercises Modalities Cold Pack/Ice Massage,Electric Stimulation,Hot Packs, Ultrasound Next Visit Focus/Plan Next Note Type Treatment Note Next Visit Plan Assess resisted stepping, response to dynamic stepping hallway, add EC next. if ok can use finger wall /c HO. POC: Focus balance training- can use bungee, unstable surface, less visual support. Assess orthostatics in future. Leg press, STS, stairs, hip abduction strengthening, ankle strength sagittal, lateral. Fall risk handout. assess hip mobility, trial stretching program if sanjeev well initiate balance training: hurdles, stable and unstable, SLS, narrow NADER, eyes open/ closed, reactionary and anticipatory balance reactions , rocker board.
--- NOTE | 2024-09-02 15:27 | PT.OTN ---
Current Diagnoses Stiffness of right hip, not elsewhere classified (09/02/24) Stiffness of left hip, not elsewhere classified (09/02/24) Stiffness of right knee, not elsewhere classified (09/02/24) Stiffness of left knee, not elsewhere classified (09/02/24) Unsteadiness on feet (09/02/24) Other abnormalities of gait and mobility (09/02/24) Weakness (09/02/24) Physical Therapy Treatment Note PT-OP-A Visit Information Start: 08/19/24 10:39 Freq: Status: Active Protocol: Document 09/02/24 14:32 NM (Rec: 09/02/24 15:27 NM [id number]) Out-Patient Physical Therapy Visit Information Visit Information Visit Type Treatment Note Visit Start Time 14:33 Visit Stop Time 15:15 Visit Number 4 Evaluation Information Evaluation Date 08/19/24 Precautions Precautions hx falls, B TKA PT-OP-B Current Condition Start: 08/19/24 10:39 Freq: Status: Active Protocol: Document 08/19/24 11:34 NM (Rec: 08/19/24 12:26 NM [id number]) Current Condition History of Current Condition Onset Date 1-2 years ago Current Complaints poor balance especially in laterally History of Current Condition Pt presents with balance and gait abnormalities. Hx of B TKA in 2018. He reports that he noticed his balance worsening since covid. Reports increased lateral sway on boat and on walks, reports feeling off balance as he bends over to pick things up. Since 2023, pt has had 2 falls . He reports that they happened when bending over to empty trash car. Pt has walking sticks, does not have cane. Pt reports that he has noticed that he feels lightheaded and unsure of his feet. He has high blood pressure. He reports that he does have more lightheadedness with postional changes. Pt reports that he uses a night light, has clear floor; hsas to get up 1-2 times per time, occasionally 3x. Uses railing for stairs to avoid falls. Goes to gym 5x/wk (cardio, machines); currently trying to lose weight, reports that this is the heaviest that he's been. Current Functional Impairments (Reported) Functional Limitations- ADL's donning socks due to hip rotation Functional Limitations- Mobility/Gait daily ambulation car transfers ([facility]) Functional Limitations- Recreation/ camping/hiking - using rails Hobbies PT-OP-C Subjective Start: 08/19/24 10:39 Freq: Status: Active Protocol: Document 09/02/24 14:32 NM (Rec: 09/02/24 15:27 NM [id number]) OP-PT Subjective Patient Comments Patient Comments Pt reports that has not been doing all exercises due to construction in home. He reports felt good after last session. PT-OP-D Balance Start: 08/19/24 10:39 Freq: Status: Active Protocol: Document 08/19/24 11:34 NM (Rec: 08/19/24 12:26 NM [id number]) Balance Tests Santos Balance Test Santos Balance Test Score 44/56 Other Other Balance Tests Performed Functional Gait Assessment ( FGA): PT-OP-E Functional Tests Start: 08/19/24 10:39 Freq: Status: Active Protocol: Document 08/19/24 11:34 NM (Rec: 08/19/24 12:26 NM [id number]) Functional Tests 30 Second Sit to Stand Test Score 10 Comments from standard chair Five Times Sit to Stand Test Score 13 seconds Comments from standard chair PT-OP-G Mobility & Gait Start: 08/19/24 10:39 Freq: Status: Active Protocol: Document 08/19/24 11:34 NM (Rec: 08/19/24 12:26 NM [id number]) OP Gait Assessment Gait Gait Assistance Required: Independent Distance (Feet) 150 Comments Gait Comments Slow gait speed, increased NADER , no AD use PT-OP-J Posture/Palpation/Skin Start: 08/19/24 10:39 Freq: Status: Active Protocol: Document 08/19/24 11:34 NM (Rec: 08/19/24 12:26 NM [id number]) Posture Evaluation Position Standing Head/C-Spine Posture Forward Head T-Spine Posture Increased Kyphosis Pelvis Posture Posterior Tilted Weight Distribution Balanced Ankle/Foot Posture (L) Pronated,(R) Pronated PT-OP-M Strength Start: 08/19/24 10:39 Freq: Status: Active Protocol: Document 08/19/24 11:34 NM (Rec: 08/19/24 12:26 NM [id number]) Trunk Strength Trunk Manual Muscle Testing Flexion 3+ Fair+ Extension 3+ Fair+ Rotation Left 3+ Fair+ Rotation Right 3+ Fair+ Lateral Flexion Left 3+ Fair+ Lateral Flexion Right 3+ Fair+ Comments demos stepping reaction to changes in resistance Hip Strength Hip Manual Muscle Testing Right Flexion (L2) 4 Good Extension (S1) 4- Good- Abduction 4- Good- Adduction 4 Good External Rotation 4 Good Internal Rotation 4 Good Left Flexion (L2) 4- Good- Extension (S1) 4- Good- Abduction 4- Good- Adduction 4 Good External Rotation 4 Good Internal Rotation 4 Good Knee Strength Knee Manual Muscle Testing Right Flexion (S2) 4 Good Extension (L3) 4 Good Left Flexion (S2) 4 Good Extension (L3) 4 Good Ankle/Foot Strength Ankle and Foot Manual Muscle Testing Right Dorsiflexion (L4) 4 Good Plantarflexion (S1) 4 Good Inversion 4- Good- Eversion (S1) 4- Good- Left Dorsiflexion (L4) 4 Good Plantarflexion (S1) 4 Good Inversion 4- Good- Eversion (S1) 4- Good- PT-OP-Q Treatments Start: 08/19/24 10:39 Freq: Status: Active Protocol: Document 09/02/24 14:32 NM (Rec: 09/02/24 15:27 NM [id number]) Therapeutic Exercises Sitting Exercises ankle inversion Sitting Exercise Name HEP review: 1 set with PF bias , 1 set with DF bias Side bilateral Resistance level 3 band Reps/Minutes 3 sets of 10 ea - band around ankles Comments pt has HEP question w/ set up Standing Exercises lunge Standing Exercise Name 1. fwd, 2. lateral Side bilateral Equipment Used prn hand support for balance; close SBA Reps/Minutes 15 ea Comments cued form resisted side stepping Standing Exercise Name HEP review: lateral, fwd/bwd Side bilateral Resistance TB #2 at shins Equipment Used (open area)- SBA Reps/Minutes 10 ft x3 laps Neuro Re-Education Treatment Balance Activities foam Details CGA for SLS, close SBA for all others Surface unstable Equipment stair rail for balance Comments 1. SLS, 2x30 c/ 1 finger support increased trunk sway, can periodically remove 1 finger for balance 2. heel raises, ball between legs for support:30 cued to minimize rocking 3. squats, 2x10 no counter balance with hands dyanmic stepping Surface tile Reps/Duration nolasco- 2x 50 ft ea direction Comments 1. fwd c/ head turns 2. fwd c/ vertical nods 3. bwd 4. tandem EO- finger on wall for balance 5. carioca - finger on wall for balnace challenging to coordinate 6. eyes closed - finger on wall for balance PT-OP-T Assessment and Plan Start: 08/19/24 10:39 Freq: Status: Active Protocol: Document 09/02/24 14:32 NM (Rec: 09/02/24 15:27 NM [id number]) Physical Therapy Assessment Goals Three Impairment hx of falls, not performing HEP Short Term Goal (STG) Pt will be provided with education regarding strategies to reduce fall risk due to hx of falls 09/02/24: provided HO on fall reduction strategies STG Duration 3 weeks [facility] Goal (LTG) Pt will report compliance with HEP at least 3x/wk to transition to maintenance program upon discharge from PT LTG Duration 8 weeks Two Impairment 5x STS in 13 sec, 30 sec STS 10 reps Jail Goal (LTG) Pt will be able to perform at least 14 reps (age related norm) during 30 sec STS in order to demonstrate improvev endurance, BLE strength, and initial standing balance during transfers LTG Duration 8 weeks One Impairment FGA 16/30, Santos 44/56 Jail Goal (LTG) Pt will increase FGA score >22 /30 (WFL) in order to demonstrate decreased fall risk during household and community ambulation LTG Duration 8 weeks Assessment Summary Assessment Pt still has trouble with ankle inversion HEP set up. Recommended pt tie on door or have spouse hold as difficulty with crossing leg and still performing correctly. Demos increased trunk way, needs minimal assist from PT but requires at least 1 finger assist on wall for balance with narrow NADER or decreased visual support. Tendency for R trunk lean and listing; will continue to assess for possible vestibular component. Maintains balance with lateral movements on lunge, but needs prn hand assist with sagittal plane motion to prevent LOB. Physical Therapy Plan Frequency and Duration Frequency of Treatment 2x/Week Duration of treatment (weeks) 8 Plan of Care Start Date 08/19/24 Plan of Care End Date 10/17/24 Therapeutic Interventions Therapeutic Interventions Balance Training,Gait Training ,Home Exercise Program,Joint Mobilizations,Manual Therapy, Neuromuscular Re-education, Orthotic/Prosthetic Management ,Patient/Caregiver Education, Self-Care/Home Management, Sensory Integration,Soft Tissue Mobilization,Taping, Therapeutic Activities, Therapeutic Exercises Modalities Cold Pack/Ice Massage,Electric Stimulation,Hot Packs, Ultrasound Next Visit Focus/Plan Next Note Type Treatment Note Next Visit Plan stepping c/ HO, lunge c/ foam POC: Focus balance training- can use bungee, unstable surface, less visual support. Assess orthostatics in future. Leg press, STS, stairs, hip abduction strengthening, ankle strength sagittal, lateral. Fall risk handout. assess hip mobility, trial stretching program if sanjeev well initiate balance training: hurdles, stable and unstable, SLS, narrow NADER, eyes open/ closed, reactionary and anticipatory balance reactions , rocker board.
--- NOTE | 2024-09-05 15:07 | PT.OTN ---
Current Diagnoses Stiffness of right hip, not elsewhere classified (09/05/24) Stiffness of left hip, not elsewhere classified (09/05/24) Stiffness of right knee, not elsewhere classified (09/05/24) Stiffness of left knee, not elsewhere classified (09/05/24) Unsteadiness on feet (09/05/24) Other abnormalities of gait and mobility (09/05/24) Weakness (09/05/24) Physical Therapy Treatment Note PT-OP-A Visit Information Start: 08/19/24 10:39 Freq: Status: Active Protocol: Document 09/05/24 11:33 NM (Rec: 09/05/24 12:20 NM [id number]) Out-Patient Physical Therapy Visit Information Visit Information Visit Type Treatment Note Visit Start Time 11:34 Visit Stop Time 12:12 Visit Number 5 Evaluation Information Evaluation Date 08/19/24 Precautions Precautions hx falls, B TKA PT-OP-B Current Condition Start: 08/19/24 10:39 Freq: Status: Active Protocol: Document 08/19/24 11:34 NM (Rec: 08/19/24 12:26 NM [id number]) Current Condition History of Current Condition Onset Date 1-2 years ago Current Complaints poor balance especially in laterally History of Current Condition Pt presents with balance and gait abnormalities. Hx of B TKA in 2018. He reports that he noticed his balance worsening since covid. Reports increased lateral sway on boat and on walks, reports feeling off balance as he bends over to pick things up. Since 2023, pt has had 2 falls . He reports that they happened when bending over to empty trash car. Pt has walking sticks, does not have cane. Pt reports that he has noticed that he feels lightheaded and unsure of his feet. He has high blood pressure. He reports that he does have more lightheadedness with postional changes. Pt reports that he uses a night light, has clear floor; hsas to get up 1-2 times per time, occasionally 3x. Uses railing for stairs to avoid falls. Goes to gym 5x/wk (cardio, machines); currently trying to lose weight, reports that this is the heaviest that he's been. Current Functional Impairments (Reported) Functional Limitations- ADL's donning socks due to hip rotation Functional Limitations- Mobility/Gait daily ambulation car transfers ([facility]) Functional Limitations- Recreation/ camping/hiking - using rails Hobbies PT-OP-C Subjective Start: 08/19/24 10:39 Freq: Status: Active Protocol: Document 09/05/24 11:33 NM (Rec: 09/05/24 12:20 NM [id number]) OP-PT Subjective Patient Comments Patient Comments Pt reports a little sore after last session. He reports that he integrates at the gym wiht his HEP. He feels stronger. PT-OP-D Balance Start: 08/19/24 10:39 Freq: Status: Active Protocol: Document 08/19/24 11:34 NM (Rec: 08/19/24 12:26 NM [id number]) Balance Tests Santos Balance Test Santos Balance Test Score 44/56 Other Other Balance Tests Performed Functional Gait Assessment ( FGA): PT-OP-E Functional Tests Start: 08/19/24 10:39 Freq: Status: Active Protocol: Document 08/19/24 11:34 NM (Rec: 08/19/24 12:26 NM [id number]) Functional Tests 30 Second Sit to Stand Test Score 10 Comments from standard chair Five Times Sit to Stand Test Score 13 seconds Comments from standard chair PT-OP-G Mobility & Gait Start: 08/19/24 10:39 Freq: Status: Active Protocol: Document 08/19/24 11:34 NM (Rec: 08/19/24 12:26 NM [id number]) OP Gait Assessment Gait Gait Assistance Required: Independent Distance (Feet) 150 Comments Gait Comments Slow gait speed, increased NADER , no AD use PT-OP-J Posture/Palpation/Skin Start: 08/19/24 10:39 Freq: Status: Active Protocol: Document 08/19/24 11:34 NM (Rec: 08/19/24 12:26 NM [id number]) Posture Evaluation Position Standing Head/C-Spine Posture Forward Head T-Spine Posture Increased Kyphosis Pelvis Posture Posterior Tilted Weight Distribution Balanced Ankle/Foot Posture (L) Pronated,(R) Pronated PT-OP-M Strength Start: 08/19/24 10:39 Freq: Status: Active Protocol: Document 08/19/24 11:34 NM (Rec: 08/19/24 12:26 NM [id number]) Trunk Strength Trunk Manual Muscle Testing Flexion 3+ Fair+ Extension 3+ Fair+ Rotation Left 3+ Fair+ Rotation Right 3+ Fair+ Lateral Flexion Left 3+ Fair+ Lateral Flexion Right 3+ Fair+ Comments demos stepping reaction to changes in resistance Hip Strength Hip Manual Muscle Testing Right Flexion (L2) 4 Good Extension (S1) 4- Good- Abduction 4- Good- Adduction 4 Good External Rotation 4 Good Internal Rotation 4 Good Left Flexion (L2) 4- Good- Extension (S1) 4- Good- Abduction 4- Good- Adduction 4 Good External Rotation 4 Good Internal Rotation 4 Good Knee Strength Knee Manual Muscle Testing Right Flexion (S2) 4 Good Extension (L3) 4 Good Left Flexion (S2) 4 Good Extension (L3) 4 Good Ankle/Foot Strength Ankle and Foot Manual Muscle Testing Right Dorsiflexion (L4) 4 Good Plantarflexion (S1) 4 Good Inversion 4- Good- Eversion (S1) 4- Good- Left Dorsiflexion (L4) 4 Good Plantarflexion (S1) 4 Good Inversion 4- Good- Eversion (S1) 4- Good- PT-OP-Q Treatments Start: 08/19/24 10:39 Freq: Status: Active Protocol: Document 09/05/24 11:33 NM (Rec: 09/05/24 12:20 NM [id number]) Therapeutic Exercises Standing Exercises ankle dorsiflexion Standing Exercise Name back at wall Side bilateral Resistance AROM Reps/Minutes 20 Comments cued form heel raises Standing Exercise Name 1. gastrocnemius, 2. soleus- HEP (no hO) Side bilateral Equipment Used B hand support on wall for balance Reps/Minutes 20 c/ pause at end range Comments cued eccentric lowering control; no rocking Other Exercises step up Other Exercise Name 6 step: fwd, lateral Side bilateral Equipment Used close SBA; no UE assist but UE hovering Reps/Minutes 10 ea Comments cued neutral foot position Neuro Re-Education Treatment Balance Activities shuttle balance Details red Surface unstable Reps/Duration 8 min Comments 1. A/P normal NADER 2. A/P normal NADER c/ head turns 3. A/P staggered stance 4. M/L normal NADER CGA-Porfirio. Improved ability to maintain weight shift for steadiness, reactionary balance. Most challenging is staggered stance and M/L. Able to turn head with mostly stable board, only CGA with increased times foam Details SBA-CGA Surface unstable Equipment stair rail for balance Comments 1. SLS on foam, 2x30 ea; SBA 2. SLS on foam, no UE support for time; CGA 3. fwd lunge c/ front foot on foam; partial ROM; SBA cued for neutral foot and form ; no UE support except when stepping on/off 4. lateral lunge c/ 1 foot on foam; no UE support except when stepping on/off; SBA Cued form PT-OP-T Assessment and Plan Start: 08/19/24 10:39 Freq: Status: Active Protocol: Document 09/05/24 11:33 NM (Rec: 09/05/24 12:20 NM [id number]) Physical Therapy Assessment Goals Three Impairment hx of falls, not performing HEP Short Term Goal (STG) Pt will be provided with education regarding strategies to reduce fall risk due to hx of falls 09/02/24: provided HO on fall reduction strategies STG Duration 3 weeks MET Alf Goal (LTG) Pt will report compliance with HEP at least 3x/wk to transition to maintenance program upon discharge from PT LTG Duration 8 weeks Two Impairment 5x STS in 13 sec, 30 sec STS 10 reps Alf Goal (LTG) Pt will be able to perform at least 14 reps (age related norm) during 30 sec STS in order to demonstrate improvev endurance, BLE strength, and initial standing balance during transfers LTG Duration 8 weeks One Impairment FGA 16/30, Santos 44/56 Alf Goal (LTG) Pt will increase FGA score >22 /30 (WFL) in order to demonstrate decreased fall risk during household and community ambulation LTG Duration 8 weeks Assessment Summary Assessment Pt demos improved trunk control and awareness with lunges and exercises on foam today. Needs less UE assist and less PT assist, cueing only for form. Trialed shuttle balance for unstable surface and vestibular input; staggered stance most challenging for pt, as is reacting to medial-lateral instability. Demos tendency for hip strategy or UE assist to counterbalance COG. Initiated step ups multidirectionally and standing ankle strengthening. Needs cueing for execution, prn cues safety. Pt progressing well with improving balance and strength . Physical Therapy Plan Frequency and Duration Frequency of Treatment 2x/Week Duration of treatment (weeks) 8 Plan of Care Start Date 08/19/24 Plan of Care End Date 10/17/24 Therapeutic Interventions Therapeutic Interventions Balance Training,Gait Training ,Home Exercise Program,Joint Mobilizations,Manual Therapy, Neuromuscular Re-education, Orthotic/Prosthetic Management ,Patient/Caregiver Education, Self-Care/Home Management, Sensory Integration,Soft Tissue Mobilization,Taping, Therapeutic Activities, Therapeutic Exercises Modalities Cold Pack/Ice Massage,Electric Stimulation,Hot Packs, Ultrasound Next Visit Focus/Plan Next Note Type Treatment Note Next Visit Plan stepping c/ HO, step up - HEP, add ankle to HEP if needed. pallof, trunk control POC: Focus balance training- can use bungee, unstable surface, less visual support. Assess orthostatics in future. Leg press, STS, stairs, hip abduction strengthening, ankle strength sagittal, lateral. Fall risk handout. assess hip mobility, trial stretching program if sanjeev well initiate balance training: hurdles, stable and unstable, SLS, narrow NADER, eyes open/ closed, reactionary and anticipatory balance reactions , rocker board.
--- NOTE | 2024-09-11 12:23 | PT.OTN ---
Current Diagnoses Stiffness of right hip, not elsewhere classified (09/11/24) Stiffness of left hip, not elsewhere classified (09/11/24) Stiffness of right knee, not elsewhere classified (09/11/24) Stiffness of left knee, not elsewhere classified (09/11/24) Unsteadiness on feet (09/11/24) Other abnormalities of gait and mobility (09/11/24) Weakness (09/11/24) Physical Therapy Treatment Note PT-OP-A Visit Information Start: 08/19/24 10:39 Freq: Status: Active Protocol: Document 09/11/24 11:35 NM (Rec: 09/11/24 12:23 NM [id number]) Out-Patient Physical Therapy Visit Information Visit Information Visit Type Treatment Note Visit Start Time 11:36 Visit Stop Time 12:15 Visit Number 6 Evaluation Information Evaluation Date 08/19/24 Precautions Precautions hx falls, B TKA PT-OP-B Current Condition Start: 08/19/24 10:39 Freq: Status: Active Protocol: Document 08/19/24 11:34 NM (Rec: 08/19/24 12:26 NM [id number]) Current Condition History of Current Condition Onset Date 1-2 years ago Current Complaints poor balance especially in laterally History of Current Condition Pt presents with balance and gait abnormalities. Hx of B TKA in 2018. He reports that he noticed his balance worsening since covid. Reports increased lateral sway on boat and on walks, reports feeling off balance as he bends over to pick things up. Since 2023, pt has had 2 falls . He reports that they happened when bending over to empty trash car. Pt has walking sticks, does not have cane. Pt reports that he has noticed that he feels lightheaded and unsure of his feet. He has high blood pressure. He reports that he does have more lightheadedness with postional changes. Pt reports that he uses a night light, has clear floor; hsas to get up 1-2 times per time, occasionally 3x. Uses railing for stairs to avoid falls. Goes to gym 5x/wk (cardio, machines); currently trying to lose weight, reports that this is the heaviest that he's been. Current Functional Impairments (Reported) Functional Limitations- ADL's donning socks due to hip rotation Functional Limitations- Mobility/Gait daily ambulation car transfers ([facility]) Functional Limitations- Recreation/ camping/hiking - using rails Hobbies PT-OP-C Subjective Start: 08/19/24 10:39 Freq: Status: Active Protocol: Document 09/11/24 11:35 NM (Rec: 09/11/24 12:23 NM [id number]) OP-PT Subjective Patient Comments Patient Comments Pt reports having more dizziness in morning when getting up out of bed. He reports that has not had for a week. Has to look multiple directions. Typically faces R side, has been sleeping in R side for years. Denies dizziness, vertigo. Feels out of balance when sitting up. Take BP medication in am PT-OP-D Balance Start: 08/19/24 10:39 Freq: Status: Active Protocol: Document 08/19/24 11:34 NM (Rec: 08/19/24 12:26 NM [id number]) Balance Tests Santos Balance Test Santos Balance Test Score 44/56 Other Other Balance Tests Performed Functional Gait Assessment ( FGA): PT-OP-E Functional Tests Start: 08/19/24 10:39 Freq: Status: Active Protocol: Document 08/19/24 11:34 NM (Rec: 08/19/24 12:26 NM [id number]) Functional Tests 30 Second Sit to Stand Test Score 10 Comments from standard chair Five Times Sit to Stand Test Score 13 seconds Comments from standard chair PT-OP-G Mobility & Gait Start: 08/19/24 10:39 Freq: Status: Active Protocol: Document 08/19/24 11:34 NM (Rec: 08/19/24 12:26 NM [id number]) OP Gait Assessment Gait Gait Assistance Required: Independent Distance (Feet) 150 Comments Gait Comments Slow gait speed, increased NADER , no AD use PT-OP-J Posture/Palpation/Skin Start: 08/19/24 10:39 Freq: Status: Active Protocol: Document 08/19/24 11:34 NM (Rec: 08/19/24 12:26 NM [id number]) Posture Evaluation Position Standing Head/C-Spine Posture Forward Head T-Spine Posture Increased Kyphosis Pelvis Posture Posterior Tilted Weight Distribution Balanced Ankle/Foot Posture (L) Pronated,(R) Pronated PT-OP-M Strength Start: 08/19/24 10:39 Freq: Status: Active Protocol: Document 08/19/24 11:34 NM (Rec: 08/19/24 12:26 NM [id number]) Trunk Strength Trunk Manual Muscle Testing Flexion 3+ Fair+ Extension 3+ Fair+ Rotation Left 3+ Fair+ Rotation Right 3+ Fair+ Lateral Flexion Left 3+ Fair+ Lateral Flexion Right 3+ Fair+ Comments demos stepping reaction to changes in resistance Hip Strength Hip Manual Muscle Testing Right Flexion (L2) 4 Good Extension (S1) 4- Good- Abduction 4- Good- Adduction 4 Good External Rotation 4 Good Internal Rotation 4 Good Left Flexion (L2) 4- Good- Extension (S1) 4- Good- Abduction 4- Good- Adduction 4 Good External Rotation 4 Good Internal Rotation 4 Good Knee Strength Knee Manual Muscle Testing Right Flexion (S2) 4 Good Extension (L3) 4 Good Left Flexion (S2) 4 Good Extension (L3) 4 Good Ankle/Foot Strength Ankle and Foot Manual Muscle Testing Right Dorsiflexion (L4) 4 Good Plantarflexion (S1) 4 Good Inversion 4- Good- Eversion (S1) 4- Good- Left Dorsiflexion (L4) 4 Good Plantarflexion (S1) 4 Good Inversion 4- Good- Eversion (S1) 4- Good- PT-OP-Q Treatments Start: 08/19/24 10:39 Freq: Status: Active Protocol: Document 09/11/24 11:35 NM (Rec: 09/11/24 12:23 NM [id number]) Therapeutic Exercises Supine Exercises figure 4 stretch Side bilateral Reps/Minutes 60 ea hamstring stretch Side bilateral Equipment Used c/ strap Reps/Minutes 60 ea Standing Exercises ankle dorsiflexion Standing Exercise Name back at wall- HEP Side bilateral Resistance 2.2#ball on feet Reps/Minutes 20 heel raises Standing Exercise Name HEP - 1. gastrocnemius, 2. soleus Side bilateral Resistance 2.2# ball btwn ankles Equipment Used B hand support on wall for balance Reps/Minutes 20 ea Comments less rocking lunge Standing Exercise Name HEP - 1. fwd, 2. lateral Side bilateral Equipment Used prn hand support for balance; close SBA Reps/Minutes 10 ea Comments cued form, stepping fwd/lat; edu near counter for HEP if balance needed resisted side stepping Standing Exercise Name HEP review: lateral, fwd/bwd Side bilateral Resistance TB #3 at shins Equipment Used (open area)- SBA Reps/Minutes 10 ft x3 laps Comments progressed to green band Therapeutic Activity Therapeutic Activity orthostatics Name RUE Reps/Minutes 15 min c/ education Comments supine: 164/97 mmHg standin/82 mmHg, no symptoms Educated on taking blood pressure multiple times in different positions to determine if drop occurring at home as well. Recommended performing prior to taking BP meds and after, then log; recommend follow up with PCP as well. Educated and briefly provided exercises (no handout ) on performing from supine> sitting if symptoms occur, including isometrics c/ breathwork and knee ext/ marching etc. Educated on slow positional changes if occurs to allow BP regulation. PT-OP-T Assessment and Plan Start: 08/19/24 10:39 Freq: Status: Active Protocol: Document 09/11/24 11:35 NM (Rec: 09/11/24 12:23 NM [id number]) Physical Therapy Assessment Goals Three Impairment hx of falls, not performing HEP Short Term Goal (STG) Pt will be provided with education regarding strategies to reduce fall risk due to hx of falls 09/02/24: provided HO on fall reduction strategies STG Duration 3 weeks [facility] Assistant Goal (LTG) Pt will report compliance with HEP at least 3x/wk to transition to maintenance program upon discharge from PT LTG Duration 8 weeks Two Impairment 5x STS in 13 sec, 30 sec STS 10 reps [facility] Center Assistant Goal (LTG) Pt will be able to perform at least 14 reps (age related norm) during 30 sec STS in order to demonstrate improvev endurance, BLE strength, and initial standing balance during transfers LTG Duration 8 weeks One Impairment FGA 16/30, Santos 44/56 Care Home Goal (LTG) Pt will increase FGA score >22 /30 (WFL) in order to demonstrate decreased fall risk during household and community ambulation LTG Duration 8 weeks Assessment Summary Assessment Pt demos good tolerance to progressions with therapeutic exercise. Able to add resistance and stepping for lunges; no UE support needed today. Cueing for execution especially with lateral motion . Less rocking with all ankle exercises. Tested pt's orthostatics due to reports of lightheadness with positional changes. Pt does demonstrate a significant drop in both systolic and diastolic BP without symptoms; however, has already taken BP medication today and BP is elevated generally. Education provided for safety and recommendation to alert PCP if continues to occur. Physical Therapy Plan Frequency and Duration Frequency of Treatment 2x/Week Duration of treatment (weeks) 8 Plan of Care Start Date 08/19/24 Plan of Care End Date 10/17/24 Therapeutic Interventions Therapeutic Interventions Balance Training,Gait Training ,Home Exercise Program,Joint Mobilizations,Manual Therapy, Neuromuscular Re-education, Orthotic/Prosthetic Management ,Patient/Caregiver Education, Self-Care/Home Management, Sensory Integration,Soft Tissue Mobilization,Taping, Therapeutic Activities, Therapeutic Exercises Modalities Cold Pack/Ice Massage,Electric Stimulation,Hot Packs, Ultrasound Next Visit Focus/Plan Next Note Type Treatment Note Next Visit Plan lunges with foam vs bosu. pallof, trunk control POC: Focus balance training- can use bungee, unstable surface, less visual support. Leg press, STS, stairs, hip abduction strengthening, ankle strength sagittal, lateral. Fall risk handout. assess hip mobility, trial stretching program if sanjeev well initiate balance training: hurdles, stable and unstable, SLS, narrow NADER, eyes open/ closed, reactionary and anticipatory balance reactions , rocker board.
--- NOTE | 2024-09-16 12:57 | PT.OTN ---
Current Diagnoses Stiffness of right hip, not elsewhere classified (09/16/24) Stiffness of left hip, not elsewhere classified (09/16/24) Stiffness of right knee, not elsewhere classified (09/16/24) Stiffness of left knee, not elsewhere classified (09/16/24) Unsteadiness on feet (09/16/24) Other abnormalities of gait and mobility (09/16/24) Weakness (09/16/24) Physical Therapy Treatment Note PT-OP-A Visit Information Start: 08/19/24 10:39 Freq: Status: Active Protocol: Document 09/16/24 11:34 NM (Rec: 09/16/24 12:19 NM [id number]) Out-Patient Physical Therapy Visit Information Visit Information Visit Type Treatment Note Visit Start Time 11:34 Visit Stop Time 12:15 Visit Number 7 Evaluation Information Evaluation Date 08/19/24 Precautions Precautions hx falls, B TKA PT-OP-B Current Condition Start: 08/19/24 10:39 Freq: Status: Active Protocol: Document 08/19/24 11:34 NM (Rec: 08/19/24 12:26 NM [id number]) Current Condition History of Current Condition Onset Date 1-2 years ago Current Complaints poor balance especially in laterally History of Current Condition Pt presents with balance and gait abnormalities. Hx of B TKA in 2018. He reports that he noticed his balance worsening since covid. Reports increased lateral sway on boat and on walks, reports feeling off balance as he bends over to pick things up. Since 2023, pt has had 2 falls . He reports that they happened when bending over to empty trash car. Pt has walking sticks, does not have cane. Pt reports that he has noticed that he feels lightheaded and unsure of his feet. He has high blood pressure. He reports that he does have more lightheadedness with postional changes. Pt reports that he uses a night light, has clear floor; hsas to get up 1-2 times per time, occasionally 3x. Uses railing for stairs to avoid falls. Goes to gym 5x/wk (cardio, machines); currently trying to lose weight, reports that this is the heaviest that he's been. Current Functional Impairments (Reported) Functional Limitations- ADL's donning socks due to hip rotation Functional Limitations- Mobility/Gait daily ambulation car transfers (prius) Functional Limitations- Recreation/ camping/hiking - using rails Hobbies PT-OP-C Subjective Start: 08/19/24 10:39 Freq: Status: Active Protocol: Document 09/16/24 11:34 NM (Rec: 09/16/24 12:19 NM [id number]) OP-PT Subjective Patient Comments Patient Comments Pt reports that he is improving. Has been checking his blood pressure, each day in multiple positions; Reports that not dropping as much as in clinic. PT-OP-D Balance Start: 08/19/24 10:39 Freq: Status: Active Protocol: Document 08/19/24 11:34 NM (Rec: 08/19/24 12:26 NM [id number]) Balance Tests Santos Balance Test Santos Balance Test Score 44/56 Other Other Balance Tests Performed Functional Gait Assessment ( FGA): PT-OP-E Functional Tests Start: 08/19/24 10:39 Freq: Status: Active Protocol: Document 08/19/24 11:34 NM (Rec: 08/19/24 12:26 NM [id number]) Functional Tests 30 Second Sit to Stand Test Score 10 Comments from standard chair Five Times Sit to Stand Test Score 13 seconds Comments from standard chair PT-OP-G Mobility & Gait Start: 08/19/24 10:39 Freq: Status: Active Protocol: Document 08/19/24 11:34 NM (Rec: 08/19/24 12:26 NM [id number]) OP Gait Assessment Gait Gait Assistance Required: Independent Distance (Feet) 150 Comments Gait Comments Slow gait speed, increased NADER , no AD use PT-OP-J Posture/Palpation/Skin Start: 08/19/24 10:39 Freq: Status: Active Protocol: Document 08/19/24 11:34 NM (Rec: 08/19/24 12:26 NM [id number]) Posture Evaluation Position Standing Head/C-Spine Posture Forward Head T-Spine Posture Increased Kyphosis Pelvis Posture Posterior Tilted Weight Distribution Balanced Ankle/Foot Posture (L) Pronated,(R) Pronated PT-OP-M Strength Start: 08/19/24 10:39 Freq: Status: Active Protocol: Document 08/19/24 11:34 NM (Rec: 08/19/24 12:26 NM [id number]) Trunk Strength Trunk Manual Muscle Testing Flexion 3+ Fair+ Extension 3+ Fair+ Rotation Left 3+ Fair+ Rotation Right 3+ Fair+ Lateral Flexion Left 3+ Fair+ Lateral Flexion Right 3+ Fair+ Comments demos stepping reaction to changes in resistance Hip Strength Hip Manual Muscle Testing Right Flexion (L2) 4 Good Extension (S1) 4- Good- Abduction 4- Good- Adduction 4 Good External Rotation 4 Good Internal Rotation 4 Good Left Flexion (L2) 4- Good- Extension (S1) 4- Good- Abduction 4- Good- Adduction 4 Good External Rotation 4 Good Internal Rotation 4 Good Knee Strength Knee Manual Muscle Testing Right Flexion (S2) 4 Good Extension (L3) 4 Good Left Flexion (S2) 4 Good Extension (L3) 4 Good Ankle/Foot Strength Ankle and Foot Manual Muscle Testing Right Dorsiflexion (L4) 4 Good Plantarflexion (S1) 4 Good Inversion 4- Good- Eversion (S1) 4- Good- Left Dorsiflexion (L4) 4 Good Plantarflexion (S1) 4 Good Inversion 4- Good- Eversion (S1) 4- Good- PT-OP-Q Treatments Start: 08/19/24 10:39 Freq: Status: Active Protocol: Document 09/16/24 11:34 NM (Rec: 09/16/24 12:19 NM [id number]) Therapeutic Exercises Standing Exercises pallof Standing Exercise Name 1. press in squat position ( HEP), 2. press + walkout Side bilateral Resistance level 2 orange band Reps/Minutes 1. 20 ea, 2. 10 Comments cued form Other Exercises step up Other Exercise Name 8 step: 1 & 2. fwd, 3. lateral (HEP- no HO at pt request) Side bilateral Resistance AROM 1st set, 2nd set 5# ea hand, 3rd set lateral AROM only Equipment Used close SBA; no UE assist Reps/Minutes 1&2. 10 ea leg, ea set, 3. 8 ea Comments L side more challenging; cued no catching foot Neuro Re-Education Treatment Balance Activities bosu Surface unstable- blue side up Reps/Duration 10 min Comments 1. stance 2. squat c/ 2 finger support ( trialed w/o support but needs UE support) 3. fwd step taps from floor 4. lateral step taps from floor PT-OP-T Assessment and Plan Start: 08/19/24 10:39 Freq: Status: Active Protocol: Document 09/16/24 11:34 NM (Rec: 09/16/24 12:19 NM [id number]) Physical Therapy Assessment Goals Three Impairment hx of falls, not performing HEP Short Term Goal (STG) Pt will be provided with education regarding strategies to reduce fall risk due to hx of falls 09/02/24: provided HO on fall reduction strategies STG Duration 3 weeks MET Strategic Solutions Consultant Goal (LTG) Pt will report compliance with HEP at least 3x/wk to transition to maintenance program upon discharge from PT LTG Duration 8 weeks Two Impairment 5x STS in 13 sec, 30 sec STS 10 reps [employer] Consultant Goal (LTG) Pt will be able to perform at least 14 reps (age related norm) during 30 sec STS in order to demonstrate improvev endurance, BLE strength, and initial standing balance during transfers LTG Duration 8 weeks One Impairment FGA 16/30, Santos 44/56 [employer] Consultant Goal (LTG) Pt will increase FGA score >22 /30 (WFL) in order to demonstrate decreased fall risk during household and community ambulation LTG Duration 8 weeks Assessment Summary Assessment Pt tolerated session well. Demos increased effort with activities. Progressed both height and resistance for step ups for increased glute strengthening, core bracing, and balance challenges. LLE more challenging than RLE due to weakness but able to perform with cueing for safety , decreased UE support and therapeutic progressions. Lateral motion more challenging on step up. Trialed pallof press and walkout. Challenging for balance; cueing needed for form. Trialed bosu progression but needs CGA and UE assist to maintain balance. Cueing needed for weight shifting, activation, and safety. Physical Therapy Plan Frequency and Duration Frequency of Treatment 2x/Week Duration of treatment (weeks) 8 Plan of Care Start Date 08/19/24 Plan of Care End Date 10/17/24 Therapeutic Interventions Therapeutic Interventions Balance Training,Gait Training ,Home Exercise Program,Joint Mobilizations,Manual Therapy, Neuromuscular Re-education, Orthotic/Prosthetic Management ,Patient/Caregiver Education, Self-Care/Home Management, Sensory Integration,Soft Tissue Mobilization,Taping, Therapeutic Activities, Therapeutic Exercises Modalities Cold Pack/Ice Massage,Electric Stimulation,Hot Packs, Ultrasound Next Visit Focus/Plan Next Note Type Progress Note Next Visit Plan lunges with foam vs bosu. pallof, trunk control POC: Focus balance training- can use bungee, unstable surface, less visual support. Leg press, STS, stairs, hip abduction strengthening, ankle strength sagittal, lateral. Fall risk handout. assess hip mobility, trial stretching program if sanjeev well initiate balance training: hurdles, stable and unstable, SLS, narrow NADER, eyes open/ closed, reactionary and anticipatory balance reactions , rocker board.
--- NOTE | 2024-09-22 12:55 | PT.OTN ---
Current Diagnoses Stiffness of right hip, not elsewhere classified (09/22/24) Stiffness of left hip, not elsewhere classified (09/22/24) Stiffness of right knee, not elsewhere classified (09/22/24) Stiffness of left knee, not elsewhere classified (09/22/24) Unsteadiness on feet (09/22/24) Other abnormalities of gait and mobility (09/22/24) Weakness (09/22/24) Physical Therapy Treatment Note PT-OP-A Visit Information Start: 08/19/24 10:39 Freq: Status: Active Protocol: Document 09/22/24 10:45 NM (Rec: 09/22/24 11:33 NM [id number]) Out-Patient Physical Therapy Visit Information Visit Information Visit Type Progress Note Visit Start Time 10:47 Visit Stop Time 11:30 Visit Number 8 Evaluation Information Evaluation Date 08/19/24 Precautions Precautions hx falls, B TKA PT-OP-B Current Condition Start: 08/19/24 10:39 Freq: Status: Active Protocol: Document 08/19/24 11:34 NM (Rec: 08/19/24 12:26 NM [id number]) Current Condition History of Current Condition Onset Date 1-2 years ago Current Complaints poor balance especially in laterally History of Current Condition Pt presents with balance and gait abnormalities. Hx of B TKA in 2018. He reports that he noticed his balance worsening since covid. Reports increased lateral sway on boat and on walks, reports feeling off balance as he bends over to pick things up. Since 2023, pt has had 2 falls . He reports that they happened when bending over to empty trash car. Pt has walking sticks, does not have cane. Pt reports that he has noticed that he feels lightheaded and unsure of his feet. He has high blood pressure. He reports that he does have more lightheadedness with postional changes. Pt reports that he uses a night light, has clear floor; hsas to get up 1-2 times per time, occasionally 3x. Uses railing for stairs to avoid falls. Goes to gym 5x/wk (cardio, machines); currently trying to lose weight, reports that this is the heaviest that he's been. Current Functional Impairments (Reported) Functional Limitations- ADL's donning socks due to hip rotation Functional Limitations- Mobility/Gait daily ambulation car transfers (prius) Functional Limitations- Recreation/ camping/hiking - using rails Hobbies PT-OP-C Subjective Start: 08/19/24 10:39 Freq: Status: Active Protocol: Document 09/22/24 10:45 NM (Rec: 09/22/24 11:33 NM [id number]) OP-PT Subjective Patient Comments Patient Comments Pt reports improving since starting PT. Feels stronger, especially side to side. Has been doing HEP in gym. Wants to continue to work toward balance, being more aware of what to do when off balance. PT-OP-D Balance Start: 08/19/24 10:39 Freq: Status: Active Protocol: Document 08/19/24 11:34 NM (Rec: 08/19/24 12:26 NM [id number]) Balance Tests Santos Balance Test Santos Balance Test Score 44/56 Other Other Balance Tests Performed Functional Gait Assessment ( FGA): PT-OP-E Functional Tests Start: 08/19/24 10:39 Freq: Status: Active Protocol: Document 08/19/24 11:34 NM (Rec: 08/19/24 12:26 NM [id number]) Functional Tests 30 Second Sit to Stand Test Score 10 Comments from standard chair Five Times Sit to Stand Test Score 13 seconds Comments from standard chair PT-OP-G Mobility & Gait Start: 08/19/24 10:39 Freq: Status: Active Protocol: Document 08/19/24 11:34 NM (Rec: 08/19/24 12:26 NM [id number]) OP Gait Assessment Gait Gait Assistance Required: Independent Distance (Feet) 150 Comments Gait Comments Slow gait speed, increased NADER , no AD use PT-OP-J Posture/Palpation/Skin Start: 08/19/24 10:39 Freq: Status: Active Protocol: Document 08/19/24 11:34 NM (Rec: 08/19/24 12:26 NM [id number]) Posture Evaluation Position Standing Head/C-Spine Posture Forward Head T-Spine Posture Increased Kyphosis Pelvis Posture Posterior Tilted Weight Distribution Balanced Ankle/Foot Posture (L) Pronated,(R) Pronated PT-OP-M Strength Start: 08/19/24 10:39 Freq: Status: Active Protocol: Document 08/19/24 11:34 NM (Rec: 08/19/24 12:26 NM [id number]) Trunk Strength Trunk Manual Muscle Testing Flexion 3+ Fair+ Extension 3+ Fair+ Rotation Left 3+ Fair+ Rotation Right 3+ Fair+ Lateral Flexion Left 3+ Fair+ Lateral Flexion Right 3+ Fair+ Comments demos stepping reaction to changes in resistance Hip Strength Hip Manual Muscle Testing Right Flexion (L2) 4 Good Extension (S1) 4- Good- Abduction 4- Good- Adduction 4 Good External Rotation 4 Good Internal Rotation 4 Good Left Flexion (L2) 4- Good- Extension (S1) 4- Good- Abduction 4- Good- Adduction 4 Good External Rotation 4 Good Internal Rotation 4 Good Knee Strength Knee Manual Muscle Testing Right Flexion (S2) 4 Good Extension (L3) 4 Good Left Flexion (S2) 4 Good Extension (L3) 4 Good Ankle/Foot Strength Ankle and Foot Manual Muscle Testing Right Dorsiflexion (L4) 4 Good Plantarflexion (S1) 4 Good Inversion 4- Good- Eversion (S1) 4- Good- Left Dorsiflexion (L4) 4 Good Plantarflexion (S1) 4 Good Inversion 4- Good- Eversion (S1) 4- Good- PT-OP-Q Treatments Start: 08/19/24 10:39 Freq: Status: Active Protocol: Document 09/22/24 10:45 NM (Rec: 09/22/24 11:33 NM [id number]) Therapeutic Exercises Standing Exercises pallof Standing Exercise Name 1. press in squat position ( HEP), 2. press + walkout, 3. press + lift Side bilateral Resistance level 2 orange band Reps/Minutes 10 ea position Comments cued set up and execution resisted side stepping Standing Exercise Name lateral Side bilateral Resistance level 3 band at ankles (don/ doff in sitting) Equipment Used close SBA Reps/Minutes 2x25 ft ea Other Exercises 30 sec STS Equipment Used standard chair Reps/Minutes 15 Neuro Re-Education Treatment Balance Activities FGA Comments bosu Surface unstable- blue side up Equipment prn UE support for balance, next to bar Reps/Duration 10 ea leg Comments 1. fwd lunges (stationary) 2. lateral lunges (stationary) dyanmic stepping Details HEP Surface stable Reps/Duration 2 sets x 15 ft ea Comments 1. retro stepping 2. normal stepping c/ head turns 3. normal stepping c/ head nods 4. eyes closed 5. tandem stepping PT-OP-T Assessment and Plan Start: 08/19/24 10:39 Freq: Status: Active Protocol: Document 09/22/24 10:45 NM (Rec: 09/22/24 11:33 NM [id number]) Physical Therapy Assessment Goals Three Impairment hx of falls, not performing HEP Short Term Goal (STG) Pt will be provided with education regarding strategies to reduce fall risk due to hx of falls 09/02/24: provided HO on fall reduction strategies STG Duration 3 weeks MET Flight Test Engineer Goal (LTG) Pt will report compliance with HEP at least 3x/wk to transition to maintenance program upon discharge from PT 09/22/24: pt has been doing HEP 3x/wk LTG Duration 8 weeks Two Impairment 5x STS in 13 sec, 30 sec STS 10 reps Chcf Goal (LTG) Pt will be able to perform at least 14 reps (age related norm) during 30 sec STS in order to demonstrate improvev endurance, BLE strength, and initial standing balance during transfers 09/22/24: 15 STS in 30 seconds from standard chair LTG Duration 8 weeks MET One Impairment FGA 16/30, Santos 44/56 Flight Test Engineer Goal (LTG) Pt will increase FGA score >22 /30 (WFL) in order to demonstrate decreased fall risk during household and community ambulation 09/22/24: 22/30 LTG Duration 8 weeks MET Progress Towards Goals Progress Towards Goals Goals Met Progress Comments All goals met Assessment Summary Assessment Pt continues to demonstrate improvement in balance, gait, and strength. LLE weaker than RLE but able to perform all exercises, just with increased effort. Added dynamic stepping to HEP for balance, with education to remain near stable surface if needs to hold to correct balance; does not need to perform in session . Moderate cueing for correct execution of pallof press as pt has been performing with free weight vs resistance band ; educated on rationale of band and resistance, improved form with reps. Physical Therapy Plan Frequency and Duration Frequency of Treatment 2x/Week Duration of treatment (weeks) 8 Plan of Care Start Date 08/19/24 Plan of Care End Date 10/17/24 Therapeutic Interventions Therapeutic Interventions Balance Training,Gait Training ,Home Exercise Program,Joint Mobilizations,Manual Therapy, Neuromuscular Re-education, Orthotic/Prosthetic Management ,Patient/Caregiver Education, Self-Care/Home Management, Sensory Integration,Soft Tissue Mobilization,Taping, Therapeutic Activities, Therapeutic Exercises Modalities Cold Pack/Ice Massage,Electric Stimulation,Hot Packs, Ultrasound Discharge Physical Therapy Discharge Reasons Goals Met Discharge Comments Pt has met all PT goals. He demos improvements in balance and strength with FGA score and 30 sec STS. Pt is compliant with HEP. PT and pt discussed discharge from PT as all goals met. PT educated pt on following up with new referral to address any future balance impairments as needed . Pt verbalizes understanding and will be discharged to maintenance program for strength/balance. Next Visit Focus/Plan Next Note Type Discharge Summary Next Visit Plan discharge from PT
== END 2024-09-25 10:56 | disposition home or self-care (01) ==
LOC: PHYS 10:45
PROVIDERS: Family Provider Family Medicine; PCP Family Medicine; Referring Provider Family Medicine; Visit Provider Family Medicine
DX: R26.81 Unsteadiness on feet (principal); R53.1 Weakness; R26.89 Other abnormalities of gait and mobility; M25.662 Stiffness of left knee, not elsewhere classified; M25.652 Stiffness of left hip, not elsewhere classified; M25.651 Stiffness of right hip, not elsewhere classified; M25.661 Stiffness of right knee, not elsewhere classified
CPT/HCPCS: 97110; 97112; 97116; 97161; 97530; 97535

== ENCOUNTER → 2024-12-05 14:06 | Outpatient (CLI) | payer MEDICARE, OTHER, SELFPAY | PROVIDERS: Family Provider Family Medicine; PCP Family Medicine; Referring Provider Chiropractor; Visit Provider Chiropractor | DX: R19.7 Diarrhea, unspecified (principal) | CPT/HCPCS: 87045; 87329 ==

== ENCOUNTER → 2025-01-19 13:50 | Outpatient (CLI) | payer MEDICARE, OTHER, SELFPAY ==
[2025-01-19 14:04] LABS: Mean Corpuscular HGB Conc 33.4 % (30-36); Mean Corpuscular Volume 95.7 fL (80-100); Platelet Count 278 X10^3/uL (150-400); Red Blood Cell Count 4.39 X10^6/uL (4.5-5.9); Red Cell Distribution Width 12.9 % (11.6-14.8); White Blood Cell Count 7.2 X10^3/uL (4.5-11.0)
[2025-01-19 14:16] LABS: Alanine Aminotransferase 65 IU/L (<50); Albumin 4.2 g/dL (3.5-5.0); Albumin Globulin Ratio 1.6 (1.0-2.8); Alkaline Phosphatase 90 U/L (38-126); Aspartate Aminotransferase 129 IU/L (17-59); BUN Creatinine Ratio 17.7 (6-22); Bilirubin Total 0.8 mg/dL (0.2-1.3); Blood Urea Nitrogen 11 mg/dL (9-20); Carbon Dioxide 27 mmol/L (22-32); Chloride 98 mmol/L (98-107); Estimated Glomerular Filt Rate > 60 mL/min (>60); Globulin 2.7 g/dL (1.7-4.1); Glucose 97 mg/dL (70-99); HEMOLYSIS < 15 (0-50); Potassium 4.3 mmol/L (3.4-5.1); Sodium 132 mmol/L (137-145); Total Protein 6.9 g/dL (6.3-8.2)
[2025-01-19 14:57] LABS: TSH w/ Reflex to FT4 1.25 uIU/mL (0.47-4.68)
== END ==
PROVIDERS: PCP Family Medicine; Referring Provider Family Medicine; Visit Provider Family Medicine
DX: Z00.00 Encounter for general adult medical examination without abnormal findings (principal); R79.89 Other specified abnormal findings of blood chemistry; I10 Essential (primary) hypertension; E66.9 Obesity, unspecified; I48.91 Unspecified atrial fibrillation
CPT/HCPCS: 36415; 80053; 84443; 85027

== ENCOUNTER → 2025-01-21 15:54 | Outpatient (CLI) | payer MEDICARE, OTHER, SELFPAY ==
--- NOTE | 2025-01-21 15:56 | DI.ECHO.S_ITS ---
[facility] : : [id number] : [place] : : [id number] : : Phone: [phone] Echocardiogram Report + + :Name: KRUAP PACHECO Study Date: 01/21/2025 Height: 70 in : :[facility] ReadingLocation: Weight: 235 lb : : Gender: Male BSA: 2.2 m2 : :: 1945 Age: 79 yrs BP: 143/97 mmHg: :Reason For Study: ATRIAL FIBRILLATION : :Ordering Physician: RAEANN, : :SHAYNA Performed By: Angel Zimmer : :Referring: SHAYNA CARY : + + Interpretation Summary The left ventricle is normal in size. The ejection fraction is estimated to be 50-55%. There are no focal wall motion abnormalities. The right ventricle is mildly dilated. The right ventricular systolic function is normal. The right ventricular systolic pressure is estimated to be at least 39 mmHg based on an estimated right atrial pressure of 3 mm Hg. The left atrium is moderately dilated. There is mild mitral regurgitation. There is mild aortic regurgitation. The aortic root is mildly dilated. The ascending aorta is mild-moderately enlarged. Procedure: A two-dimensional transthoracic echocardiogram with color flow and Doppler was performed. The study quality was technically good. Comparison is made with the echocardiogram of 05/07/2019. The patient was in atrial fibrillation with heart rates between 83-111 bpm during the exam. Left Ventricle: The left ventricle is normal in size. Left ventricular wall thickness is mildly increased. There is no ventricular septal defect visualized. The ejection fraction is estimated to be 50-55%. There are no focal wall motion abnormalities. Diastolic function could not be accurately assessed due to atrial fibrillation. Right Ventricle: The right ventricle is mildly dilated. The right ventricular systolic function is normal. Atria: The left atrium is moderately dilated. Right atrial size is normal. There is no Doppler evidence for an interatrial shunt. Mitral Valve: The mitral valve leaflets appear normal. There is no evidence of stenosis, fluttering, or prolapse. There is mild mitral regurgitation. Aortic Valve: The aortic valve is trileaflet. The aortic valve opens well. There is mild aortic regurgitation. Tricuspid Valve: The tricuspid valve is not well visualized, but is grossly normal. There is mild tricuspid regurgitation. The right ventricular systolic pressure is estimated to be at least 39 mmHg based on an estimated right atrial pressure of 3 mm Hg. Pulmonic Valve: The pulmonic valve is not well seen, but is grossly normal. There is trace pulmonic regurgitation. Great Vessels: The aortic root is mildly dilated. The ascending aorta is mild-moderately enlarged. The pulmonary artery is normal size. The IVC is of normal diameter and collapses greater than 50% with a sniff. This suggests a low right atrial pressure of 3 mm Hg. Pericardium/ Pleura There is no pericardial effusion. There is no pleural effusion. MMode/2D Measurements & Calculations LVIDd: 4.8 cm LVOT diam: 2.2 cm LVIDs: 3.5 cm Ao root diam: 4.0 cm FS: 28.1 % asc Aorta Diam: 4.2 cm EPSS: 0.79 cm IVSd: 1.2 cm LVPWd: 1.2 cm LV londono. diameter/BSA (cm/m^2): 2.2 LV sys. diameter/BSA (cm/m^2): 1.6 LA A2 area: 31.6 cm2 RA long axis: 5.0 cm LA A4 area: 28.5 cm2 RA area: 16.8 cm2 LA length (vol): 7.7 cm RA vol: 47.7 ml LA vol: 99.5 ml RA : 21.4 ml/m2 LA vol index: 44.5 ml/m2 IVC diam: 1.9 cm RVD1 (basal): 4.4 cm RVD2 (mid): 3.4 cm TAPSE: 2.4 cm Doppler Measurements & Calculations Ao V2 max: 138.7 cm/sec LVOT Max Mundo: 111.7 cm/sec Ao V2 mean: 99.8 cm/sec LV V1 max P.0 mmHg Ao max P.7 mmHg LV V1 VTI: 20.4 cm Ao mean P.4 mmHg GLADYS(I,D): 3.0 cm2 Ao V2 VTI: 26.2 cm GLADYS(V,D): 3.1 cm2 sev ratio: 0.78 GLADYS indexed to BSA (cm^2/m^2): 1.3 MV E max mundo: 95.0 cm/sec TR max mundo: 298.9 cm/sec MV A max mundo: 19.2 cm/sec TR max P.7 mmHg MV E/A: 4.9 PA V2 max: 78.9 cm/sec Med Peak E' Mundo: 5.5 cm/sec PA V2 mean: 54.1 cm/sec E/E' med: 17.4 PA mean P.3 mmHg Lat Peak E' Mundo: 10.4 cm/sec PA pr(Accel): 60.2 mmHg E/E' lat: 9.1 E/e' average: 13.2 MV dec time: 0.14 sec SV(OT): 79.1 ml Reading Physician:09:48 PM
== END ==
LOC: ECHO 15:55
PROVIDERS: PCP Family Medicine; Referring Provider Family Medicine; Visit Provider Family Medicine
DX: I08.3 Combined rheumatic disorders of mitral, aortic and tricuspid valves (principal); I77.89 Other specified disorders of arteries and arterioles; I77.810 Thoracic aortic ectasia; I48.91 Unspecified atrial fibrillation
CPT/HCPCS: 93306

== ENCOUNTER → 2025-06-30 11:42 | Outpatient (CLI) | payer MEDICARE, OTHER, SELFPAY ==
[2025-06-30 13:00] LABS: Alanine Aminotransferase 43 IU/L (<50); Albumin 4.4 g/dL (3.5-5.0); Albumin Globulin Ratio 1.8 (1.0-2.8); Alkaline Phosphatase 94 U/L (38-126); Blood Urea Nitrogen 11 mg/dL (9-20); Calcium 9.3 mg/dL (8.4-10.2); Carbon Dioxide 29 mmol/L (22-32); Chloride 100 mmol/L (98-107); Cholesterol 135 mg/dL (140-199); Estimated Glomerular Filt Rate > 60 mL/min (>60); Globulin 2.5 g/dL (1.7-4.1); Glucose 97 mg/dL (70-99); HDL Cholesterol 104 mg/dL (40-60); HEMOLYSIS < 15 (0-50); Potassium 4.5 mmol/L (3.4-5.1); Sodium 136 mmol/L (137-145); Total Protein 6.9 g/dL (6.3-8.2); Triglycerides 86 mg/dL (35-150)
== END ==
PROVIDERS: PCP Family Medicine; Referring Provider Family Medicine; Visit Provider Family Medicine
DX: Z00.00 Encounter for general adult medical examination without abnormal findings (principal); Z12.5 Encounter for screening for malignant neoplasm of prostate; R79.89 Other specified abnormal findings of blood chemistry; I48.19 Other persistent atrial fibrillation; I10 Essential (primary) hypertension
CPT/HCPCS: 36415; 80053; 80061; G0103